=== PATIENT | male | born 1955 | race Caucasian/White ===

== ENCOUNTER 2016-04-24 18:23 | Inpatient (IN) | payer OTHER ==
[~2016-04-24] VITALS: Ht 193 cm; Wt 117.4 kg
[~2016-04-24 18:23] MED LIST: CARV25TA2 PO; CREST10T PO; FENO54TA PO; FURO40TA4 PO; GLPZ5T PO; LISI-571 PO; MESA1.2T2 PO; MESA800T PO; NIAC500T7 PO; SPIR25TA3 PO; TAMS0.4C98 PO; WARF5TAB7 PO
[2016-04-24 19:34] VITALS: BP 138/81; PULSE 76; RESP 16; O2SAT 97
[2016-04-24] MEDS ORDERED: FERR325T6 PO (19:44)
[2016-04-24] MEDS ORDERED: ASCO-294 PO (19:44)
[2016-04-24] MEDS ORDERED: FISH1CAP15 PO (19:44)
[2016-04-24] MEDS ORDERED: WARF7.5T5 PO (19:44)
[2016-04-24] MEDS ORDERED: WARF5TAB9 PO (19:44)
[2016-04-24] MEDS ORDERED: ROSU40TA20 PO (19:50)
--- NOTE | 2016-04-24 22:13 | NUR ---
admit: med rec completed by admit RN. pt is A&OX3, sister at bedside with pt. pt reports neuropathy and reports pain 2/10 of left toe. Left foot elevated on pillow, serous drainage. 2nd toe is red/purple swollen. pt reports some soreness of foot and up Lower leg. minimal redness noted. VSS. notified pt has arrived to floor. will continue to monitor.
[2016-04-24] MEDS ORDERED: Ondansetron 2 mg/mL 2 mL Inj IVPUSH PRN (22:20)
[2016-04-24] MEDS ORDERED: Alum-Mag Hydrox-Simeth 30 mL Suspension PO PRN (22:20)
[2016-04-24] MEDS ORDERED: Polyethylene Glycol (PEG) 17 Gm Powder PO PRN (22:20)
[2016-04-24] MEDS ORDERED: Glucose 40% Oral Gel 15 Gm Tube PO PRN (22:20)
[2016-04-24] MEDS ORDERED: Piper-Tazo 3.375 Gm/50 mL D5W Minibag Plus - Q8H over 4 hrs IV ONE ×2 (22:40)
[2016-04-24 22:54] LABS: BASOPHILS % (AUTO) 0.3 % (0-3); EOSINOPHILS % (AUTO) 4.4 % (0-5); MONOCYTES % (AUTO) 18.3 % (4-12); Mean Corpuscular Hemoglobin 29.3 pg (27.0-35.0); Mean Corpuscular Volume 90.5 fL (81-100); NEUTROPHILS % (AUTO) 60.5 % (40-74); Platelet Count 174 bil/L (150-400)
[2016-04-24] MEDS ORDERED: 0.9% Sodium Chloride 250 ML ONE (22:54)
[2016-04-24] MEDS: Lactated Ringer's 1,000 ML IV SCH (23:25)
--- NOTE | 2016-04-24 23:27 | PCM.HPMED ---
Subjective Date of Service Apr 24, 2016 Primary Provider: Admitting Physician: Abdulaziz Carranza Primary Care Physician: Jered Bright MD Attending Physician: Abdulaziz Carranza Admit Status: Direct Admit (from Urgent Care) Chief Complaint: Left second toe infection History of Present Illness: Patient is a 60 year-old diabetic male who presented to urgent care this afternoon. He states that his left second toe has been discolored for years. 1- 2 weeks ago, he noted worsening coloration. Two days ago, he began having shooting pain that lasted all night and was associated with mild chills and subjective fevers. Last night he felt better but this morning it seemed more swollen so he decided to work all day and go to urgent care after work. He has very little pain because of his neuropathy. In urgent care, he was surprised to see the extent of change in his toe since the morning. Much more swollen, more discoloration. Urgent care marge labs and had 3-view x-rays taken then sent him to [facility] for IV antibiotics. Vitals were stable: 97.5; 127/79; 79; 18; 97% on room air; 1/10 pain level. Labs: CRP 19.2; H&H 12.0 & 36.2; BUN & Cr = 46 & 1.89 (note, elevated since 2011 and at baseline ); sed rate 17. . Review of Systems: As per HPI, otherwise negative. Allergies Coded Allergies: clindamycin (Verified Allergy, Severe, RASH, 11/29/14) codeine (Verified Allergy, Severe, HEADACHE, 11/29/14) Home Medications Carvedilol 25mg BID ascorbate calcium 500mg QAM fenofibrate 54mg PO QHS ferrous sulfate 325mg daily fish oil/DHA/EPA 2 capsules PO QAM furosemide 40mg daily glipizide 5mg PO AM; 10mg PO QHS lisinopril 5mg daily mesalamine 2.4 gm PO daily niacin 1,000 mg PO QHS Rosuvastatin 40mg PO HS Spironolactone 12.5 mg PO daily Warfarin 5mg 6 days of the week, 7.5mg on Tuesdays . PMH Paroxysmal atrial fibrillation OA nephrolithiasis moderate mitral regurgitation kidney stones chronic renal insufficiency HTN hyperlipidemia dilated cardiomyopathy DM2 Crohn's disease CHF Family History Mother with diabetes, CAD, of lung cancer Social History Hx Alcohol Use: No (QUIT 1977) Hx Substance Use: No Hx Tobacco Use: No Smoking Status: Never Smoker Living Arrangement: with Family Exam Vital Signs Vital Sign - Last Date Time Temp Pulse Resp B/P Pulse Ox O2 Delivery O2 Flow Rate FiO2 04/24/16 19:34 36.6 76 16 138/81 97 Room Air Exam General: alert, oriented x3, cooperative, no acute distress Eyes: PERRL, scleral anicteric Mouth: mouth normal, mucous membranes moist/pink Neck: supple, no thyromegaly Chest & Lungs: clear to auscultation, no adventitious breath sounds, no crackles , no wheeze Cardiovascular: no murmurs/rubs/gallops, regular rate/rhythm at the time of the exam Pulses: Radial (present and equal), Dorsalis Pedi (present and equal but diminished) Abdomen: soft, non-tender, non-distended, normoactive bowel tones Musculoskeletal: Left second toe is edematous, erythematous, with abrasion on dorsum of toe, mild redness extending to mid-calf on left, he is able to move all toes, only mild tenderness to palpation at base of 2nd toe on dorsum of foot. Erythema extends through ankle. No excessive heat. Neurological: Grossly neurologically intact, normal speech, diminished sensation in toes . Lab and Diagnostics X-Rays, CTs and MRIs 04/24/16: PROCEDURE: X-RAY LEFT FOOT COMPLETE, MINIMUM THREE VIEWS ([id number]) INDICATIONS: DIABETIC FOOT INFECTION TECHNIQUE: 3 views of the foot were acquired. COMPARISON: None. FINDINGS: Bones: No fractures or dislocations. No suspicious bony lesions. Osteoarthritic degenerative changes are noted. Pes planus deformity is noted. No bony erosive changes or periosteal reaction identified. Soft tissues: No tibiotalar joint effusion. Achilles tendon appears normal. No soft tissue gas identified. Soft tissue swelling noted in the first and second digits suspicious for cellulitis. IMPRESSION: No lizette evidence of osteomyelitis. Plain film radiographs can be insensitive to osteomyelitis during the initial 15 days of the disease process. If there is clinical concern for osteomyelitis, then three-phase nuclear medicine bone scan is warranted. Dictated by: Selma Zhou MD, PhD on 04/24/2016 at 18:48 Assessment & Plan Patient is a 60 year-old diabetic male who presented to urgent care this afternoon with edematous and erythematous left 2nd toe. Cellulitis of left second toe in a diabetic with neuropathy, present on admission, acute - Per 3 view x-ray of today: No lizette evidence of osteomyelitis - Patient does not have signs of sepsis - Podiatry, Dr. Duncan, consult ordered. I DID NOT CALL. DAY TEAM NEEDS TO CALL. - Wound care ordered - Consulted with pharmacy regarding antibiotics and patient's reduced kidney capacity. Per pharmacy: Zosyn and linezolid. Stop linezolid if MRSA comes back negative. - Wound culture - Blood cultures x2 - MRSA swab - lactic acid normal, CRP high at 16.6 - IV fluids. Careful with CHF. Chronic kidney disease likely diabetic nephropathy, present on admission - UA pending - Cr 1.66 which is better than baseline per [facility] records from 2011. Estimated GFR 45 - careful with nephrotoxic drugs. - Patient is on antibiotics -- continued monitoring of kidney function Proximal atrial fibrillation, present on admission, chronic - INR 3.06 - warfarin per pharmacy Diabetes mellitus type 2, present on admission, chronic - Last A1c on 01/17/16 was 6.3. There have been periods of time since 2011 that his A1c was over 10. A1c ordered - Held glipizide in the acute setting - Medium dose correctional scale ordered - Diabetic/heart healthy diet Other chronic, present on admission diagnoses: Heart failure with preserved ejection fraction / cardiomyopathy. Hold furosemide , spironolactone in the acute setting of infection with IV fluids. Restart when appropriate. Continue carvedilol. HTN. Hold lisinopril in the acute setting considering chronic kidney failure and current antibiotics. Restart when appropriate. Continue carvedilol. Dyslipidemia. Rosuvastatin, fenofibrate continued. Crohn's disease. Continue mesalamine. - Acetaminophen as needed for mild pain/fever/headache - Bowel regimen as needed - Antiemetic as needed Patient admitted under inpatient status with expected length of stay > 2 midnights for severity of present symptoms, complexities of treatment plan and risk for adverse events CODE STATUS: full, verified with patient . Pain Evaluation: Adequate Pain Control GI Prophylaxis: Proton Pump Inhibitor VTE Prophylaxis: Sub-Q Heparin (Unfractionated), Theraputic Anticoag with Warfarin Resuscitation Status: CPR: Attempt Resuscitation Attending Statement Pt seen and examined independently, Plan and treatment discussed with resident. Agree with the above plan and assesment. copies to: Jered Bright MD, Janice M DO Apr 24, 2016 23:26 Ramiro Robins MD Apr 25, 2016 06:47 Patient admitted under inpatient status with expected length of stay > 2 midnights for severity of present symptoms, complexities of treatment plan and risk for adverse events CODE STATUS: full, verified with patient Pain Evaluation: Adequate Pain Control GI Prophylaxis: Proton Pump Inhibitor VTE Prophylaxis: Sub-Q Heparin (Unfractionated), Theraputic Anticoag with Warfarin Resuscitation Status: CPR: Attempt Resuscitation copies to: Jered Bright MD, Janice M DO Apr 24, 2016 23:26
[2016-04-24 23:43] LABS: INR 3.06 ratio
[2016-04-25] MEDS: Linezolid Inj 600 MG in IV Premix 1 EACH IV SCH ×3 (00:20→23:08)
[2016-04-25] MEDS ORDERED: Heparin 5,000 Unit/mL Inj SUBQ SCH (00:30)
[2016-04-25 01:00] VITALS: BP 133/77; PULSE 77; RESP 16; O2SAT 97
[2016-04-25 03:29] LABS: APPEARANCE,URINE CLEAR (CLEAR,HAZY); COLOR,URINE STRAW (YELLOW)
[2016-04-25 03:30] LABS: OCCULT BLOOD,URINE NEGATIVE (NEGATIVE); UROBILINOGEN,URINE NORMAL (NORMAL)
[2016-04-25 05:56] VITALS: BP 135/80; PULSE 76; RESP 16; O2SAT 96
[2016-04-25 06:14] LABS: BASOPHILS % (AUTO) 0.4 % (0-3); EOSINOPHILS % (AUTO) 6.1 % (0-5); MONOCYTES % (AUTO) 17.9 % (4-12); Mean Corpuscular Hemoglobin 29.5 pg (27.0-35.0); Mean Corpuscular Volume 89.7 fL (81-100); NEUTROPHILS % (AUTO) 54.8 % (40-74); Platelet Count 153 bil/L (150-400)
[2016-04-25 06:37] LABS: INR 2.9 ratio
[2016-04-25] MEDS: Insulin LISPRO 300 Unit/3 mL Inj SUBQ SCH ×4 (07:25→21:13)
[2016-04-25] MEDS: Omega-3 Fatty Acids 1,000 mg Capsule PO SCH (07:31)
[2016-04-25] MEDS: Ascorbic Acid 500 mg Tablet PO SCH (07:31)
[2016-04-25] MEDS: Lactated Ringer's 1,000 ML IV SCH ×2 (07:32→18:42)
[2016-04-25] MEDS ORDERED: Influenza (Adult) Vaccine 0.5 mL Syringe IM ONE (08:30)
[2016-04-25] MEDS: Piper-Tazo 3.375 Gm/50 mL D5W Minibag Plus - Q8H over 4 hrs IV SCH ×2 (11:06)
--- NOTE | 2016-04-25 14:19 | PCM.PNMED ---
Subjective Date of Service Apr 25, 2016 Subjective Overnight: No acute events Today: States he is doing well, denies any fever, chills, nausea, vomiting. Admits to occasional sharp pain Exam Vital Signs Vital Sign - Last Date Time Temp Pulse Resp B/P Pulse Ox O2 Delivery O2 Flow Rate FiO2 04/25/16 05:56 36.5 76 16 135/80 96 Room Air Exam General: AAOx3; pleasant and cooperative; no acute distress HENT: Atraumatic; sclera anicteric; mucus membranes moist Neck: Trachea midline; full ROM without pain elicited Cardiac: Regular rate, regular rhythm; no murmurs appreciated Respiratory: Clear to auscultation bilaterally; adequate air flow all matias; no wheeze Abdomen: Soft, nontender, nondistended Extremities: No edema BLLE; Right foot without any ulcerations or signs of injuries; left second digit enlarged, edematous, erythematous, and discolored with ulceration on distal aspect of toe without active bleeding or discharge Pulses: BLLE dorsal pedis faint Neuro: CNII-XII grossly intact; speech normal Psych: Appropriate mood, affect, and responses to questioning Lab and Diagnostics Result Diagram: 04/25/1654404/25/16544 X-Rays, CTs and MRIs PROCEDURE: X-RAY LEFT FOOT COMPLETE, MINIMUM THREE VIEWS ([id number]) IMPRESSION: No lizette evidence of osteomyelitis. Plain film radiographs can be insensitive to osteomyelitis during the initial 15 days of the disease process. If there is clinical concern for osteomyelitis, then three-phase nuclear medicine bone scan is warranted. Dictated by: Selma Zhou MD, PhD on 04/24/2016 at 18:48 Assessment & Plan Mr. Ibrahim is a pleasant 60 year old gentleman with history of non-insulin using diabetes mellitus with peripheral neuropathy, and chronic kidney disease III, that presented to [facility] from with a painful, swollen left second toe, without associated fevers, chills, nausea, or vomiting. He was admitted for evaluation and treatment of suspected cellulitis of left second toe. - Hospital day two Cellulitis of left second toe in a diabetic with neuropathy, acute, present on admission. Under therapy - XR left foot 04/24: No lizette evidence of osteomyelitis - Podiatry consulted; appreciate time and recommendations - Wound care ordered - Antibiotics: Zosyn, linezolid; start date 04/24 - Stop linezolid if MRSA negative - Wound culture pending - Blood cultures x2 pending - MRSA swab pending Chronic kidney disease secondary to diabetic nephropathy. Presumed stable - On admit: Cr 1.66; baseline per [employer] approx 1.4-1.5 - UA 04/25: Negative for indicators of infection - Monitor with labs - Avoid nephrotoxic agents Paroxysmal atrial fibrillation, chronic. Presumed stable - On admit: INR 3.06 - Warfarin per pharmacy Non-insulin using diabetes mellitus, chronic. Presumed stable - Last A1c on 01/17/16 was 6.3 - Held glipizide in the acute setting - Medium dose correctional scale ordered - Diabetic/heart healthy diet Other chronic, presumed stable, diagnoses: Heart failure with preserved ejection fraction / cardiomyopathy - Hold furosemide, spironolactone in the acute setting of infection with IV fluids. Restart when appropriate. - Continue carvedilol. HTN. - Hold lisinopril in the acute setting considering chronic kidney failure and current antibiotics. - Restart when appropriate. - Continue carvedilol. Dyslipidemia. - Rosuvastatin, fenofibrate continued. Crohn's disease. - Continue mesalamine. - PRN: Fever/antiemetic/pain/bowel - DVT: Warfarin - GI: None - DIET: Heart healthy/CC - CODE: FULL CODE Dispo: Likely to remain additional 1-2 days pending medical stability. Awaiting recs from podiatry, and culture results. No definitive anticipated needs at this time, but awaiting antibiotic sensitivities to return. Pain Evaluation: Adequate Pain Control GI Prophylaxis: Proton Pump Inhibitor VTE Prophylaxis: Sub-Q Heparin (Unfractionated), Theraputic Anticoag with Warfarin Resuscitation Status: CPR: Attempt Resuscitation Attending Statement The patient was seen and examined together with Dr. Dill on 04/25/2016 and I agree with the history, exam and plan as outlined in the note above. Marci Dill DO Apr 25, 2016 12:55 Kodi Lombardi MD Apr 26, 2016 09:19
--- NOTE | 2016-04-25 14:56 | PCM.CHPPOD ---
Subjective Date of service Apr 25, 2016 History of Present Illness 60 year old male with history of neuropathy and DM is evaluated at bedside in [facility]. no complaints of pain. no fevers or chills. patient states that he noticed his toe had become inflamed and was discharging pus over the past 3 days. 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 Allergy Allergies: Coded Allergies: clindamycin (Verified Allergy, Severe, RASH, 11/29/14) codeine (Verified Allergy, Severe, HEADACHE, 11/29/14) Medications Blood Thinners: Coumadin Ascorbate Calcium (Vitamin C) 500 Mg Tablet 500 MG PO QAM Carvedilol (Carvedilol) 25 Mg Tablet 25 MG PO BID Fenofibrate (Fenofibrate) 54 Mg Tablet 54 MG PO HS Ferrous Sulfate (Ferrous Sulfate) 325 Mg Tablet.dr 325 MG PO DAILY Fish Oil/Dha/Epa (Fish Oil 1,200 mg Fish Oil) 1 Each Capsule 2 CAPSULE PO QAM Furosemide (Furosemide) 40 Mg Tablet 40 MG PO DAILY Glipizide (Glipizide) 5 Mg Tablet 5 MG PO AM Glipizide (Glipizide) 5 Mg Tablet 10 MG PO HS Lisinopril (Lisinopril) 5 Mg Tablet 5 MG PO DAILY Mesalamine (Lialda) 1.2 Gm Tablet.dr 2.4 GM PO DAILY Niacin (Niacin) 500 Mg Tablet 1,000 MG PO HS Rosuvastatin Calcium (Rosuvastatin Calcium) 40 Mg Tablet 40 MG PO HS Spironolactone (Spironolactone) 25 Mg Tablet 12.5 MG PO DAILY Warfarin Sodium (Jantoven) 5 Mg Tablet 5 MG PO DAILY take 5 mg daily except tuesdays. Warfarin Sodium (Jantoven) 7.5 Mg Tablet 7.5 MG PO tuesdays Past Medical History Surgeries: Yes (MULT CYSTO/STENT/STONE EXTRACTIONS,HEART CATH) Medical History: Surgical History: Social History Hx Alcohol Use: No (QUIT 1977) Hx Substance Use: No Hx Tobacco Use: No Smoking Status: Never Smoker Podiatry Consult Exam Vital Signs Vital Sign - Last Date Time Temp Pulse Resp B/P Pulse Ox O2 Delivery O2 Flow Rate FiO2 04/25/16 05:56 36.5 76 16 135/80 96 Room Air Result Diagram: 04/25/1645 04/25/1645 Lab Test 04/24/16 22:31 04/25/16 02:15 04/25/16 05:45 Erythrocyte Sedimentation Rate 67mm/hr (0-30) Lactic Acid Level 0.5mmol/L (0.4-2.0) C-Reactive Protein 16.6mg/dL (0.0-0.5) Hold Burger Top Tube Received (Received) Urine Color Straw (YELLOW) Urine Appearance Clear (CLEAR,HAZY) Urine pH 6.0 (5.0-8.0) Urine Specific Mchenry 1.015 (1.003-1.035) Urine Protein Negativemg/dL (NEG,TRACE) Urine Glucose (UA) Negativemg/dL (NEGATIVE) Urine Ketones Negativemg/dL (NEGATIVE) Urine Occult Blood Negative (NEGATIVE) Urine Nitrite Negative (NEGATIVE) Urine Bilirubin Negative (NEGATIVE) Urine Urobilinogen Normalmg/dL (NORMAL) Urine Leukocyte Esterase Negative (NEGATIVE) Urine RBC 0-2/hpf (0-2) Urine WBC 0-5/hpf (0-5) Urine Epithelial Cells Occasional/hpf (NONE-MOD) Urine Crystals None seen (NONE SEEN) Urine Bacteria Few/hpf (NONE-FEW) Urine Hyaline Casts None/lpf (NONE) Urine Granular Casts None seen (NONE SEEN) Urine Waxy Casts None seen (NONE SEEN) Urine Red Blood Cell Casts None seen (NONE SEEN) Urine White Blood Cell Casts None seen (NONE SEEN) Urine Mucus None seen (None Seen) Urine Trichomonas None seen (NONE SEEN) Urine Yeast None (NONE SEEN) Urinalysis Comment None Urine Culture Reflexed Not indicated White Blood Count 5.3th/mm3 (3.8-10.1) Red Blood Count 3.69mil/mm3 (4.40-5.80) Hemoglobin 10.9g/dL (13.8-17.2) Hematocrit 33.1% (41.0-50.0) Mean Corpuscular Volume 89.7fL (81-100) Mean Corpuscular Hemoglobin 29.5pg (27.0-35.0) Mean Corpuscular Hemoglobin Concent 32.9% (32.0-37.0) Red Cell Distribution Width 14.5% (12.3-15.4) Platelet Count 153bil/L (150-400) Neutrophils (%) (Auto) 54.8% (40-74) Lymphocytes (%) (Auto) 20.6% (14-46) Monocytes (%) (Auto) 17.9% (4-12) Eosinophils (%) (Auto) 6.1% (0-5) Basophils (%) (Auto) 0.4% (0-3) Prothrombin Time 31.7sec (8.1-12.5) Prothromb Time International Ratio 2.90ratio Sodium Level 140mEq/L (134-144) Potassium Level 4.7mEq/L (3.5-5.2) Chloride Level 108mEq/L (97-108) Carbon Dioxide Level 17mmol/L (18-29) Blood Urea Nitrogen 37mg/dL (8-27) Creatinine 1.46mg/dL (0.76-1.27) Estimat Glomerular Filtration Rate 52mL/min (>59) Glucose Level 101mg/dL (60-99) Calcium Level 8.9mg/dL (8.5-10.1) Total Bilirubin 0.3mg/dL (0.0-1.2) Aspartate Amino Transf (AST/SGOT) 20U/L (0-50) Alanine Aminotransferase (ALT/SGPT) 16U/L (0-44) Alkaline Phosphatase 44U/L (25-160) Total Protein 6.4g/dL (6.4-8.4) Albumin 3.5g/dL (3.4-5.0) Triglycerides Level 149mg/dL (0-149) Cholesterol Level 117mg/dL (100-199) LDL Cholesterol, Calculated 60.200mg/dL (0-99) VLDL Cholesterol 29.800mg/dL HDL Cholesterol 27mg/dL (>39) Cholesterol/HDL Ratio 4.33 (0.0-4.4) Exam General: Alert, Oriented X3, Cooperative Lower Extremities: Left: Edema localized Bilateral: Extremity warm Lower Extremity Pulses: Palpable: Left Dorsalis Pedis Left Posterior Tibal Right Dorsalis Pedis Right Posterior Tibal Podiatry WOUND : Wound Location/Description left 2nd digit abscess of the 2nd DIPJ with approximately 4ml of purulent discharge, abscess wound is full thickness to bone, 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 severe edema of the 2nd digit. erythema encompasses the digit but pond not extend beyond the MTPJ. no mal odor. Assessment & Plan Assessment abscess/Cellulitis of the left 2nd digit highly suspicious of osteomyelitis. Problems: Plan Detailed bedside evaluation preformed today. The left second toe was prepped with betadine and the lateral aspect of the distal interphalangeal joint was incised, approx 4 ml of purulent drainage was noted. wound cultures taken. wound flushed and dressed with betadine soaked gauze and kerlix. Dressing to be changed daily by podiatry service. Continue IV antibiotics. follow wound cultures. NPO after midnight tonight. Patient will be evaluated by Dr. Garcia in the AM and could potentially require 2nd toe amputation if no improvement is noted. weightbear as tolerated to the left heel podiatry will follow daily. VTE Prophylaxis: Sub-Q Heparin (Unfractionated), Theraputic Anticoag with Warfarin Haim Duncan DPM Apr 25, 2016 14:56
--- NOTE | 2016-04-25 15:20 | NUR ---
spiritual care; pt request conversational visit with pt and sister lexi. Pt described toe infection in light terms, sister more concerned. Pt and sister participated in prayer. pt said he is connected at [facility], no further needs identified.
--- NOTE | 2016-04-25 16:38 | NUR ---
Wound Care Wound evaluation order received. Patient seen at bedside with Dr Duncan of podiatry. Podiatry plan is for surgical debridement, wound will sign off for now.
[2016-04-25 18:12] VITALS: BP 152/87; PULSE 78; RESP 18; O2SAT 95
[2016-04-25] MEDS: Heparin 5,000 Unit/mL Inj SUBQ SCH (18:42)
[2016-04-25] MEDS: Niacin SR 500 mg ER12 Tablet PO SCH (19:45)
[2016-04-25 20:56] VITALS: BP 140/90; PULSE 70; RESP 18; O2SAT 96
[2016-04-25 22:55] VITALS: BP 142/86; PULSE 72; RESP 18; O2SAT 96
[2016-04-26] MEDS: Piper-Tazo 3.375 Gm/50 mL D5W Minibag Plus - Q8H over 4 hrs IV SCH ×6 (00:27→22:59)
[2016-04-26 01:02] VITALS: BP 125/77; PULSE 69; RESP 18; O2SAT 97
[2016-04-26] MEDS: Heparin 5,000 Unit/mL Inj SUBQ SCH ×3 (01:08→16:48)
--- NOTE | 2016-04-26 03:54 | NUR ---
Left Foot: Left foot dressing in place throughout shift, therefore no direct observation of wound site. Dressing has small amount of what appears to be a Betadine-like solution dried on dressing. No active drainage observed during shift. Dressing otherwise clean/dry/intact. Pt. has denied pain to site. Will continue to monitor.
[2016-04-26 05:38] VITALS: BP 129/76; PULSE 74; RESP 18; O2SAT 97
[2016-04-26 06:57] LABS: INR 1.74 ratio
[2016-04-26 07:06] LABS: Magnesium 1.9 mg/dL (1.6-2.6)
[2016-04-26] MEDS: Insulin LISPRO 300 Unit/3 mL Inj SUBQ SCH ×4 (08:00→21:08)
[2016-04-26] MEDS: Lactated Ringer's 1,000 ML IV SCH ×2 (08:28→14:16)
[2016-04-26] MEDS: HYDROcodone-APAP 5-325 mg Tablet PO PRN (09:57)
[2016-04-26] MEDS: Linezolid Inj 600 MG in IV Premix 1 EACH IV SCH ×2 (10:06→22:00)
[2016-04-26] MEDS: Omega-3 Fatty Acids 1,000 mg Capsule PO SCH (10:09)
[2016-04-26] MEDS: Ascorbic Acid 500 mg Tablet PO SCH (10:10)
--- NOTE | 2016-04-26 11:22 | PCM.PNPOD ---
Subjective Date of Service: Apr 26, 2016 Visit Information: Reason for Visit Diabetic Foot W/Cellulitis Surgery/Surgery Date Post-Op Day # Date of Admission: Apr 24, 2016 at 19:18 Hospital Day # Subjective: 61-year-old male is seen for follow-up of diabetic abscess and cellulitis second toe left foot which underwent bedside incision and drainage by yesterday. Patient denies fever chills or malaise, minimal to no pain. felt that amputation might be indicated therefore patient has been nothing by mouth since midnight. Objective Vital Sign - Last Date Time Temp Pulse Resp B/P Pulse Ox O2 Delivery O2 Flow Rate FiO2 04/26/16 05:38 36.6 74 18 129/76 97 Room Air Intake and Output 04/25/16 04/25/16 04/26/16 Cumulative From/Thru 15:00 23:00 07:00 04/24/16 19:35 - 04/26/16 06:28 Intake Total 1524 ml 2201 ml 1650 ml 5375 ml Output Total 375 ml 250 ml 750 ml 1375 ml Balance 1149 ml 1951 ml 900 ml 4000 ml Intake Oral 400 ml 1167 ml 700 ml 2267 ml IV Total 1124 ml 1004 ml 950 ml 3078 ml Tube Irrigant 30 ml 30 ml Output Urine Total 375 ml 250 ml 750 ml 1375 ml # Voids 5 5 Result Diagram: 04/25/16 0545 04/26/16 0600 Lab Test 04/24/16 22:31 04/25/16 02:15 04/25/16 05:45 04/26/16 06:00 Erythrocyte Sedimentation Rate 67mm/hr (0-30) Lactic Acid Level 0.5mmol/L (0.4-2.0) C-Reactive Protein 16.6mg/dL (0.0-0.5) Hold Burger Top Tube Received (Received) Urine Color Straw (YELLOW) Urine Appearance Clear (CLEAR,HAZY) Urine pH 6.0 (5.0-8.0) Urine Specific [place] 1.015 (1.003-1.035) Urine Protein Negativemg/dL (NEG,TRACE) Urine Glucose (UA) Negativemg/dL (NEGATIVE) Urine Ketones Negativemg/dL (NEGATIVE) Urine Occult Blood Negative (NEGATIVE) Urine Nitrite Negative (NEGATIVE) Urine Bilirubin Negative (NEGATIVE) Urine Urobilinogen Normalmg/dL (NORMAL) Urine Leukocyte Esterase Negative (NEGATIVE) Urine RBC 0-2/hpf (0-2) Urine WBC 0-5/hpf (0-5) Urine Epithelial Cells Occasional/hpf (NONE-MOD) Urine Crystals None seen (NONE SEEN) Urine Bacteria Few/hpf (NONE-FEW) Urine Hyaline Casts None/lpf (NONE) Urine Granular Casts None seen (NONE SEEN) Urine Waxy Casts None seen (NONE SEEN) Urine Red Blood Cell Casts None seen (NONE SEEN) Urine White Blood Cell Casts None seen (NONE SEEN) Urine Mucus None seen (None Seen) Urine Trichomonas None seen (NONE SEEN) Urine Yeast None (NONE SEEN) Urinalysis Comment None Urine Culture Reflexed Not indicated White Blood Count 5.3th/mm3 (3.8-10.1) Red Blood Count 3.69mil/mm3 (4.40-5.80) Hemoglobin 10.9g/dL (13.8-17.2) Hematocrit 33.1% (41.0-50.0) Mean Corpuscular Volume 89.7fL (81-100) Mean Corpuscular Hemoglobin 29.5pg (27.0-35.0) Mean Corpuscular Hemoglobin Concent 32.9% (32.0-37.0) Red Cell Distribution Width 14.5% (12.3-15.4) Platelet Count 153bil/L (150-400) Neutrophils (%) (Auto) 54.8% (40-74) Lymphocytes (%) (Auto) 20.6% (14-46) Monocytes (%) (Auto) 17.9% (4-12) Eosinophils (%) (Auto) 6.1% (0-5) Basophils (%) (Auto) 0.4% (0-3) Hemoglobin A1c 6.5% (4.8-5.6) Triglycerides Level 149mg/dL (0-149) Cholesterol Level 117mg/dL (100-199) LDL Cholesterol, Calculated 60.200mg/dL (0-99) VLDL Cholesterol 29.800mg/dL HDL Cholesterol 27mg/dL (>39) Cholesterol/HDL Ratio 4.33 (0.0-4.4) Prothrombin Time 18.8sec (8.1-12.5) Prothromb Time International Ratio 1.74ratio Sodium Level 140mEq/L (134-144) Potassium Level 4.8mEq/L (3.5-5.2) Chloride Level 107mEq/L (97-108) Carbon Dioxide Level 20mmol/L (18-29) Blood Urea Nitrogen 25mg/dL (8-27) Creatinine 1.48mg/dL (0.76-1.27) Estimat Glomerular Filtration Rate 51mL/min (>59) Glucose Level 125mg/dL (60-99) Calcium Level 9.0mg/dL (8.5-10.1) Phosphorus Level 3.0mg/dL (2.5-4.9) Magnesium Level 1.9mg/dL (1.6-2.6) Total Bilirubin 0.4mg/dL (0.0-1.2) Aspartate Amino Transf (AST/SGOT) 18U/L (0-50) Alanine Aminotransferase (ALT/SGPT) 15U/L (0-44) Alkaline Phosphatase 45U/L (25-160) Total Protein 6.4g/dL (6.4-8.4) Albumin 3.7g/dL (3.4-5.0) Procalcitonin 0.06ng/mL (See Comment) Exam General: Alert, Oriented X3, Cooperative Lower Extremities: Left: Edema localized Bilateral: Extremity warm Lower Extremity Pulses: Palpable: Left Dorsalis Pedis Left Posterior Tibal Right Dorsalis Pedis Right Posterior Tibal Additional Information: Reexam shows a pleasant gentleman resting comfortably in bed, moderate dry sanguinous drainage on the bandage to the left foot. Lower extremity exam shows readily palpable DP and PT pulses at +2 over 4, the foot is warm with a brisk capillary refill. There is nearly absent plantar sensorium. Second digit is grossly edematous erythematous and somewhat dusky to the level of the metatarsal phalangeal joint, there is only mild erythema at the second MPJ level with no clinical suggestion of proximal extension. Patient states the degree of redness and swelling is improved since yesterday. There are 3 full- thickness ulcers to appear to probe to bone and joint at the PIPJ level. Probing of these sites did reveal full-thickness extension but no expressible purulence. There did appear to be some instability at the proximal interphalangeal joint level. Remainder of the pedal skin is intact webspaces are without fissures or maceration. Skin of the right foot is intact with no ulcerative or pre-ulcerative lesions noted. Assessment & Plan Impression Diabetic neuropathic ulceration, abscess and infection second digit left foot with viability of the toe questionable but which is without significant proximal extension or systemic involvement. Problems: Plan At this visit the wounds are explored bluntly an attempt made to express any purulence was little to no exudate noted. The sites were copiously irrigated with saline, iodoform gauze packing applied followed by a noncompressive gauze bandage. Continue present antibiotic therapy. Patient will likely require second digit amputation in this keep could which could be performed on Thursday I either Dr. Duncan or myself. Diabetic foot care instructions were reviewed with this patient, he may ambulate on the heel in a postoperative shoe and will be reevaluated in the a.m. VTE Prophylaxis: Sub-Q Heparin (Unfractionated), Theraputic Anticoag with Warfarin Dean Garcia DPM Apr 26, 2016 11:22
[2016-04-26 17:38] VITALS: BP 157/84; PULSE 63; RESP 16; O2SAT 96
--- NOTE | 2016-04-26 17:50 | NUR ---
Activity/LLE Pt able to amb to BR ind, denies any pain/discomfort with activity. Post-op boot placed on LLE to protect drsg. Electronic Sensing Equipment Assembler in this AM and changed drsg to LLE, there has been no drainage noted on drsg thus far. Pt did req PRN analgesic following drsg change but has denied any pain since. Enc to keep LLE elevated. Bed in lowest, locked position and call light in reach.
--- NOTE | 2016-04-26 19:39 | PCM.PNMED ---
Subjective Date of Service Apr 26, 2016 Subjective Patient reports that he is fine. He reports minimal pain to his foot. Pt denies any fevers, chills, nausea, vomiting, or diarrhea. Pt has no concerns or complaints at this time. Exam Vital Signs Vital Sign - Last Date Time Temp Pulse Resp B/P Pulse Ox O2 Delivery O2 Flow Rate FiO2 04/26/16 05:38 36.6 74 18 129/76 97 Room Air Intake and Output 04/25/16 04/25/16 04/26/16 Cumulative From/Thru 15:00 23:00 07:00 04/24/16 19:35 - 04/26/16 06:28 Intake Total 1524 ml 2201 ml 1650 ml 5375 ml Output Total 375 ml 250 ml 750 ml 1375 ml Balance 1149 ml 1951 ml 900 ml 4000 ml Intake Oral 400 ml 1167 ml 700 ml 2267 ml IV Total 1124 ml 1004 ml 950 ml 3078 ml Tube Irrigant 30 ml 30 ml Output Urine Total 375 ml 250 ml 750 ml 1375 ml # Voids 5 5 Exam General: No acute distress, well-developed, well-nourished, appropriately interactive HEENT: Normocephalic, atraumatic. . Anicteric sclerae, moist conjunctivae. Oropharynx with moist mucosa. Neck: Supple with full range of motion. Cardiovascular: Regular rate and rhythm with no murmurs, rubs, or gallops appreciated Pulmonary: Clear to auscultation bilaterally with no crackles, wheezes, or rhonchi. Normal respiratory effort with no use of accessory muscles. Abdomen: Bowel tones present. Soft, nontender, nondistended. Extremities: Bandage on left foot not removed for physical examination, per Dr Garcia second digit on left foot with edema/erythema/purulent discharge/cool to touch. No clubbing, cyanosis, edema appreciated. Skin: Normal temperature, turgor, and texture Psychiatric: Normal mood and affect. Alert and oriented to person, place, and time. IVs and Medications Medications Reviewed: Medications were reviewed in detail Lab and Diagnostics Result Diagram: 04/25/16 0545 04/26/16 0600 Microbiology Microbiology GAYLA GS (GRAM STAIN) Final 04/25/16-1838 GRAM STAIN RESULT FEW POLYS FEW GRAM POS COCCI GAYLA CULT AEROBIC Preliminary 01/07/17-1003 PRELIMINARY ID STAPH, PROBABLE STAPH AUREUS SUSCEPTIBILITIES TO FOLLOW COLONY COUNT/QUANTITY MODERATE GROWTH X-Rays, CTs and MRIs PROCEDURE: X-RAY LEFT FOOT COMPLETE, MINIMUM THREE VIEWS ([id number]) IMPRESSION: No lizette evidence of osteomyelitis. Plain film radiographs can be insensitive to osteomyelitis during the initial 15 days of the disease process. If there is clinical concern for osteomyelitis, then three-phase nuclear medicine bone scan is warranted. Dictated by: Selma Zhou MD, PhD on 04/24/2016 at 18:48 Assessment & Plan Mr. 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 He was admitted for evaluation and treatment of suspected cellulitis of left second toe. - Hospital day #3 Acute cellulitis of left second toe in a diabetic with neuropathy, present on admission, ongoing - XR left foot 04/24: No lizette evidence of osteomyelitis - Podiatry consulted; appreciate time and recommendations -Per Podiatry: Pt to continue with medical management, with plan for possible toe amputation on 04/28/16 - Wound care - Antibiotics: Zosyn, linezolid; start date 04/24 - Wound culture--growing staph aureus, susceptibilities pending - Blood cultures x2 with no growth to date - MRSA swab negative Acute episode of loose stools, etiology unknown, ongoing -Pt reports loose stools. -One dose of imodium given -If it persists, recommend c.diff testing Chronic kidney disease secondary to diabetic nephropathy. Presumed stable - On admit: Cr 1.66; baseline per [employer] approx 1.4-1.5 - UA 04/25: Negative for indicators of infection - Monitor with labs - Avoid nephrotoxic agents Paroxysmal atrial fibrillation, chronic. Presumed stable - On admit: INR 3.06 - Warfarin per pharmacy Non-insulin using diabetes mellitus, chronic. Presumed stable - Last A1c on 01/17/16 was 6.3 - Held glipizide in the acute setting - Medium dose correctional scale ordered - Diabetic/heart healthy diet Other chronic, presumed stable, diagnoses: Heart failure with preserved ejection fraction / cardiomyopathy - Hold furosemide, spironolactone in the acute setting of infection with IV fluids. Restart when appropriate. - Continue carvedilol. HTN. - Hold lisinopril in the acute setting considering chronic kidney failure and current antibiotics. - Restart when appropriate. - Continue carvedilol. Dyslipidemia. - Rosuvastatin, fenofibrate continued. Crohn's disease. - Continue mesalamine. - PRN: Fever/antiemetic/pain/bowel - DVT: Warfarin - GI: None - DIET: Heart healthy/CC - CODE: FULL CODE Dispo: Likely to remain additional 1-2 days pending medical stability. Awaiting recs from podiatry, and culture results. No definitive anticipated needs at this time, but awaiting antibiotic sensitivities to return. GI Prophylaxis: Proton Pump Inhibitor VTE Prophylaxis: Sub-Q Heparin (Unfractionated), Theraputic Anticoag with Warfarin Resuscitation Status: CPR: Attempt Resuscitation Attending Statement The patient was seen and examined together with Dr. Greco on 04/26/2016 and I agree with the history, exam and plan as outlined in the note above. Jodi Greco DO Apr 26, 2016 17:20 Kodi Lombardi MD Apr 27, 2016 11:15
[2016-04-26 20:31] VITALS: BP 151/88; PULSE 68; RESP 16; O2SAT 97
[2016-04-26] MEDS: Niacin SR 500 mg ER12 Tablet PO SCH (21:05)
[2016-04-26] MEDS ORDERED: 0.9% Sodium Chloride 250 ML ONE (21:41)
--- NOTE | 2016-04-26 21:50 | NUR ---
Pain at left rib margin Ache 2/10 at left rib margin 1.5 h after dinner,no radiation or SOB, or sweat,not increase on exertion or deep breathing, similar symptoms occurred before at home, unknown etiology,Maalox given,warm pack on, night resident [place] made aware,no order given,states continue monitoring, if worse, will call MD. Symptoms improved to 1/10 about 1hour after intervention above. Addendum: 04/27/16 at 0634 by DIONNE HAMPTON RN rib pain resolved.
[2016-04-27] MEDS: Heparin 5,000 Unit/mL Inj SUBQ SCH ×4 (00:10→23:36)
[2016-04-27 00:19] VITALS: BP 154/92; PULSE 72; RESP 16; O2SAT 96
[2016-04-27 05:15] VITALS: BP 138/82; PULSE 68; RESP 16; O2SAT 97
[2016-04-27] MEDS: Lactated Ringer's 1,000 ML IV SCH ×3 (06:15→22:10)
[2016-04-27 07:23] LABS: BASOPHILS % (AUTO) 0.6 % (0-3); EOSINOPHILS % (AUTO) 5.3 % (0-5); MONOCYTES % (AUTO) 12.1 % (4-12); Mean Corpuscular Hemoglobin 29.5 pg (27.0-35.0); Mean Corpuscular Volume 89.1 fL (81-100); NEUTROPHILS % (AUTO) 58.5 % (40-74); Platelet Count 196 bil/L (150-400)
[2016-04-27] MEDS: Insulin LISPRO 300 Unit/3 mL Inj SUBQ SCH ×4 (07:35→21:52)
[2016-04-27 07:54] LABS: INR 1.25 ratio
[2016-04-27] MEDS: Ascorbic Acid 500 mg Tablet PO SCH (08:51)
[2016-04-27] MEDS: Linezolid Inj 600 MG in IV Premix 1 EACH IV SCH ×2 (08:51→21:52)
[2016-04-27] MEDS: Omega-3 Fatty Acids 1,000 mg Capsule PO SCH (08:51)
--- NOTE | 2016-04-27 10:38 | PCM.PNPOD ---
Subjective Date of Service: Apr 27, 2016 Date of Service: Apr 27, 2016 Visit Information: Reason for Visit Diabetic Foot W/Cellulitis Surgery/Surgery Date Post-Op Day # Date of Admission: Apr 24, 2016 at 19:18 Hospital Day # Subjective: Patient is seen for follow-up of diabetic infection with soft tissue necrosis and abscess second toe left foot and is without complaints stating he denies fever chills or malaise, overall feels well and is accepting of the need for second digit amputation. Objective Vital Sign - Last Date Time Temp Pulse Resp B/P Pulse Ox O2 Delivery O2 Flow Rate FiO2 04/27/16 05:15 36.4 68 16 138/82 97 Room Air Intake and Output 04/26/16 04/26/16 04/27/16 Cumulative From/Thru 15:00 23:00 07:00 04/24/16 19:35 - 04/27/16 06:38 Intake Total 826 ml 725 ml 1412 ml 8338 ml Output Total 925 ml 2300 ml Balance 826 ml 725 ml 487 ml 6038 ml Intake Oral 520 ml 350 ml 3137 ml IV Total 826 ml 205 ml 1062 ml 5171 ml Tube Irrigant 30 ml Output Urine Total 925 ml 2300 ml # Voids 5 10 Result Diagram: 04/27/16 0707 04/27/16 0707 Lab Test 04/24/16 22:31 04/25/16 02:15 04/25/16 05:45 04/26/16 06:00 Erythrocyte Sedimentation Rate 67mm/hr (0-30) Lactic Acid Level 0.5mmol/L (0.4-2.0) C-Reactive Protein 16.6mg/dL (0.0-0.5) Hold Burger Top Tube Received (Received) Urine Color Straw (YELLOW) Urine Appearance Clear (CLEAR,HAZY) Urine pH 6.0 (5.0-8.0) Urine Specific [place] 1.015 (1.003-1.035) Urine Protein Negativemg/dL (NEG,TRACE) Urine Glucose (UA) Negativemg/dL (NEGATIVE) Urine Ketones Negativemg/dL (NEGATIVE) Urine Occult Blood Negative (NEGATIVE) Urine Nitrite Negative (NEGATIVE) Urine Bilirubin Negative (NEGATIVE) Urine Urobilinogen Normalmg/dL (NORMAL) Urine Leukocyte Esterase Negative (NEGATIVE) Urine RBC 0-2/hpf (0-2) Urine WBC 0-5/hpf (0-5) Urine Epithelial Cells Occasional/hpf (NONE-MOD) Urine Crystals None seen (NONE SEEN) Urine Bacteria Few/hpf (NONE-FEW) Urine Hyaline Casts None/lpf (NONE) Urine Granular Casts None seen (NONE SEEN) Urine Waxy Casts None seen (NONE SEEN) Urine Red Blood Cell Casts None seen (NONE SEEN) Urine White Blood Cell Casts None seen (NONE SEEN) Urine Mucus None seen (None Seen) Urine Trichomonas None seen (NONE SEEN) Urine Yeast None (NONE SEEN) Urinalysis Comment None Urine Culture Reflexed Not indicated Hemoglobin A1c 6.5% (4.8-5.6) Triglycerides Level 149mg/dL (0-149) Cholesterol Level 117mg/dL (100-199) LDL Cholesterol, Calculated 60.200mg/dL (0-99) VLDL Cholesterol 29.800mg/dL HDL Cholesterol 27mg/dL (>39) Cholesterol/HDL Ratio 4.33 (0.0-4.4) Phosphorus Level 3.0mg/dL (2.5-4.9) Magnesium Level 1.9mg/dL (1.6-2.6) Procalcitonin 0.06ng/mL (See Comment) Test 04/27/16 07:07 White Blood Count 5.5th/mm3 (3.8-10.1) Red Blood Count 4.04mil/mm3 (4.40-5.80) Hemoglobin 11.9g/dL (13.8-17.2) Hematocrit 36.0% (41.0-50.0) Mean Corpuscular Volume 89.1fL (81-100) Mean Corpuscular Hemoglobin 29.5pg (27.0-35.0) Mean Corpuscular Hemoglobin Concent 33.1% (32.0-37.0) Red Cell Distribution Width 13.8% (12.3-15.4) Platelet Count 196bil/L (150-400) Neutrophils (%) (Auto) 58.5% (40-74) Lymphocytes (%) (Auto) 23.1% (14-46) Monocytes (%) (Auto) 12.1% (4-12) Eosinophils (%) (Auto) 5.3% (0-5) Basophils (%) (Auto) 0.6% (0-3) Prothrombin Time 13.4sec (8.1-12.5) Prothromb Time International Ratio 1.25ratio Sodium Level 141mEq/L (134-144) Potassium Level 4.8mEq/L (3.5-5.2) Chloride Level 105mEq/L (97-108) Carbon Dioxide Level 21mmol/L (18-29) Blood Urea Nitrogen 19mg/dL (8-27) Creatinine 1.38mg/dL (0.76-1.27) Estimat Glomerular Filtration Rate 55mL/min (>59) Glucose Level 128mg/dL (60-99) Calcium Level 9.3mg/dL (8.5-10.1) Total Bilirubin 0.3mg/dL (0.0-1.2) Aspartate Amino Transf (AST/SGOT) 19U/L (0-50) Alanine Aminotransferase (ALT/SGPT) 15U/L (0-44) Alkaline Phosphatase 47U/L (25-160) Total Protein 6.9g/dL (6.4-8.4) Albumin 3.8g/dL (3.4-5.0) Exam General: Alert, Oriented X3, Cooperative Lower Extremities: Left: Edema localized Bilateral: Extremity warm Lower Extremity Pulses: Palpable: Left Dorsalis Pedis Left Posterior Tibal Right Dorsalis Pedis Right Posterior Tibal Additional Information: Reexam shows grossly edematous, persistently fluctuant second digit left foot. Multiple necrotic full-thickness ulcerations noted, with scant amount of purulent exudate expressed and there does appear to be instability at the distal interphalangeal joint. The infection appears to be well localized to the mid to distal toe with no significant involvement at the metatarsal phalangeal joint or proximally at this point. Pulses continue to be readily palpable. X-ray is reviewed, no gross lytic changes are noted, questionable nondisplaced fracture of the intermediate phalanx Assessment & Plan Impression Infection, abscess, soft tissue necrosis second digit left foot with probable but as yet radiographically inapparent osteomyelitis. I feel the chances of this toe healing are minimal and that amputation is indicated. I did review the details of the procedure, the minimal functional deficit as a result of second toe amputation, usual postoperative course and healing times. Patient is accepting of the necessity for this procedure and it will be scheduled tomorrow. Problems: Plan Betadine solution dressing is reapplied, I spoke with the nursing supervisor audit clerks who will have the patient scheduled for second digit amputation tomorrow, he will remain nothing by mouth after midnight. No warrantees were made or implied regarding postoperative results. VTE Prophylaxis: Sub-Q Heparin (Unfractionated), Theraputic Anticoag with Warfarin Dean Garcia DPM Apr 27, 2016 10:38
[2016-04-27 10:52] VITALS: BP 137/85; PULSE 88; RESP 18; O2SAT 93
--- NOTE | 2016-04-27 10:55 | PCM.PNMED ---
Subjective Date of Service Apr 27, 2016 Subjective Pt doing well this morning. Pt denies any fever, chills, nausea, vomiting, or foot pain. Exam Vital Signs Vital Sign - Last Date Time Temp Pulse Resp B/P Pulse Ox O2 Delivery O2 Flow Rate FiO2 04/27/16 05:15 36.4 68 16 138/82 97 Room Air Intake and Output 04/26/16 04/26/16 04/27/16 Cumulative From/Thru 15:00 23:00 07:00 04/24/16 19:35 - 04/27/16 06:38 Intake Total 826 ml 725 ml 1412 ml 8338 ml Output Total 925 ml 2300 ml Balance 826 ml 725 ml 487 ml 6038 ml Intake Oral 520 ml 350 ml 3137 ml IV Total 826 ml 205 ml 1062 ml 5171 ml Tube Irrigant 30 ml Output Urine Total 925 ml 2300 ml # Voids 5 10 Exam GENERAL: NAD, Pt laying in bed comfortably HEENT: AT/NC, PERRLA, EOMI, Mucus Membranes are moist CARDIAC: RRR; No M/R/G PULM: CTAB; No wheezes or rhonchi bilaterally EXT: No C/C/E; Pts left foot is dressed at present NEURO: Alert and oriented x3; Following all commands IVs and Medications Medications Reviewed: Medications were reviewed in detail Lab and Diagnostics Result Diagram: 04/27/1670604/27/16706 Microbiology Microbiology GAYLA GS (GRAM STAIN) Final 04/25/16-1838 GRAM STAIN RESULT FEW POLYS FEW GRAM POS COCCI GAYLA CULT AEROBIC Preliminary 04/26/16-1003 PRELIMINARY ID STAPH, PROBABLE STAPH AUREUS SUSCEPTIBILITIES TO FOLLOW COLONY COUNT/QUANTITY MODERATE GROWTH X-Rays, CTs and MRIs PROCEDURE: X-RAY LEFT FOOT COMPLETE, MINIMUM THREE VIEWS ([id number]) IMPRESSION: No lizette evidence of osteomyelitis. Plain film radiographs can be insensitive to osteomyelitis during the initial 15 days of the disease process. If there is clinical concern for osteomyelitis, then three-phase nuclear medicine bone scan is warranted. Dictated by: Selma Zhou MD, PhD on 04/24/2016 at 18:48 Assessment & Plan Mr. Ibrahim is a pleasant 60 year old gentleman with history of non-insulin using diabetes mellitus with peripheral neuropathy, and chronic kidney disease III, that presented to [facility] from [facility] with a painful, swollen left second toe, without associated fevers, chills, nausea, or vomiting. He was admitted for evaluation and treatment of suspected cellulitis of left second toe. - Hospital day #3 1. Osteomyelitis, Left 2nd Toe - Podiatry on board - Pt underwent a bedside I&D of the toe by Podiatry on 04/26/16 - Continue IV Zosyn and IV Linezolid for now - Wound cultures pending - Pt to undergo amputation of the left 2nd toe on 04/28/2016 2. Atrial Fibrillation, Paroxysmal - Pt is in NSR at present - Continue Warfarin - Pharmacy to dose - INR is therapeutic at present - Repeat INR in AM 3. Diabetes Mellitus, Type II - Well controlled - Continue medium dose SSI - Continue checking FSBS q AC and HS - Hold home Glypizide for now 4. Essential Hypertension - Well controlled - Continue home dose of Coreg - Pt is normally on Lisinopril however this has been held for the interim - Monitor BP closely 5. Chronic Kidney Disease, Stage III - Stable - Avoid nephrotoxic agents - Monitor renal function closely 6. Crohn's Disease - Stable - Continue Mesalamine GI Prophylaxis: Proton Pump Inhibitor VTE Prophylaxis: Sub-Q Heparin (Unfractionated), Theraputic Anticoag with Warfarin VTE Mechanical Devices: Intermittant Pneumatic CD Resuscitation Status: CPR: Attempt Resuscitation Kodi Lombardi MD Apr 27, 2016 10:55
--- NOTE | 2016-04-27 11:11 | NUR ---
Social Work: Screening Data: Pt is a 61 y/o male admitted for diabetic food with cellulitis. Pt's PCP is Dr Bright, pt's insurance is [facility] [employer] [facility]. EMR reviewed, pt discussed in rounds. states that pt will have toe amputated on 04/28. No d/c planning needs anticipated at this time. RAILROAD FIRER/FIREMAN will continue to follow. Assessment: Pt who is independent at baseline. Plan: Pt will d/c home via POV when medically stable. states pt to have toe amputated on 04/28. No d/c planning needs anticipated at this time. RAILROAD FIRER/FIREMAN will continue to follow. MAGDIEL Szymanski
[2016-04-27] MEDS: Piper-Tazo 3.375 Gm/50 mL D5W Minibag Plus - Q8H over 4 hrs IV SCH ×4 (11:39→23:36)
[2016-04-27] MEDS: HYDROcodone-APAP 5-325 mg Tablet PO PRN ×2 (16:29→22:11)
--- NOTE | 2016-04-27 18:31 | NUR ---
Activity/LLE Pt amb ind in room and a short distance in hallway this shift. Drsg to LLE remains intact, no strikethrough drainage noted. in this morning to change drsg. Plan is for pt to be NPO after MN tonight and go to OR tomorrow for a toe amputation. Pt is aware of plan, agrees and consent has been signed and is in chart. Pt denied any pain with exception of a "generalized arthritis" ache. PRN analgesic given with effective results. Bed in lowest, locked position and call light in reach.
[2016-04-27 21:40] VITALS: BP 147/85; PULSE 74; RESP 18; O2SAT 96
[2016-04-27] MEDS: Niacin SR 500 mg ER12 Tablet PO SCH (21:52)
[2016-04-28] VITALS (8 sets, daily range): BP systolic 126–147; BP diastolic 73–99; PULSE 58–90; RESP 10–16; O2SAT 93–96
--- NOTE | 2016-04-28 05:43 | NUR ---
Uneventful Night: Pt had an uneventful night, denied pain, chest pain and SOB. Pt slept most of the night, pleasant and cooperative with care.
[2016-04-28 06:45] LABS: INR 1.09 ratio
[2016-04-28] MEDS: Insulin LISPRO 300 Unit/3 mL Inj SUBQ SCH ×4 (07:47→21:27)
[2016-04-28] MEDS: Lactated Ringer's 1,000 ML IV SCH ×2 (07:47→16:16)
[2016-04-28] MEDS: Omega-3 Fatty Acids 1,000 mg Capsule PO SCH (08:30)
--- NOTE | 2016-04-28 08:42 | PCM.PNMED ---
Subjective Date of Service Apr 28, 2016 Subjective Bill has been NPO overnight in preparation for amputation of his left 2nd toe today. His pain has been well controlled. Exam Vital Signs Vital Sign - Last Date Time Temp Pulse Resp B/P Pulse Ox O2 Delivery O2 Flow Rate FiO2 04/28/16 04:48 36.5 67 16 126/73 95 Room Air Intake and Output 04/27/16 04/27/16 04/28/16 Cumulative From/Thru 15:00 23:00 07:00 04/24/16 19:35 - 04/28/16 06:56 Intake Total 619 ml 1580 ml 1469 ml 53529 ml Output Total 1475 ml 3775 ml Balance 619 ml 1580 ml -6 ml 8231 ml Intake Oral 900 ml 400 ml 4437 ml IV Total 619 ml 680 ml 1069 ml 7539 ml Tube Irrigant 30 ml Output Urine Total 1475 ml 3775 ml # Voids 5 15 # Bowel Movements 1 1 Exam General: Comfortable appearing male laying in bed this morning. Awake, alert and oriented. No acute distress. HEENT: Moist mucus membranes. Sclera anicteric Cardiac: RRR. No murmur, rub, or gallop appreciated Resp: Good inspiratory effort, no wheezes, rales, or rhonchi Extremities: The left foot is dressed. Lab and Diagnostics Result Diagram: 04/27/1670604/27/16 07 Microbiology Left 2nd toe culture from 04/25/16: MSSA X-Rays, CTs and MRIs PROCEDURE: X-RAY LEFT FOOT COMPLETE, MINIMUM THREE VIEWS ([id number]) IMPRESSION: No lizette evidence of osteomyelitis. Plain film radiographs can be insensitive to osteomyelitis during the initial 15 days of the disease process. If there is clinical concern for osteomyelitis, then three-phase nuclear medicine bone scan is warranted. Dictated by: Selma Zhou MD, PhD on 04/24/2016 at 18:48 Assessment & Plan Bill is a 60yo male with history of diabetes mellitus with peripheral neuropathy and chronic kidney disease stage III, who presented to [facility] from urgent care with a worsening painful, swollen left second toe. He has been admitted for evaluation and treatment of cellulitis of left second toe, found to have osteomyelitis upon incision of an abscess on the toe. Hospital day #4 1. Osteomyelitis, Left 2nd Toe - Amputation anticipated with podiatry today - Bedside I&D of the toe by Podiatry on 04/26/16 with abscess tracking to the bone at the DIP joint. - Culture from abscess growing MSSA - Antibiotic changed to ceftriaxone 2g daily given the wound culture result. Has received 3 days of therapy with Zosyn and linezolid 2. Atrial Fibrillation, Paroxysmal - Remains in NSR thus far - Continue Warfarin with pharmacy making dose adjustments - INR is currently subtherapeutic as dosing was held in preparation for the toe amputation today - Repeat INR in AM 3. Diabetes Mellitus, Type II - Well controlled - Continue medium dose correctional insulin - Continue blood glucose monitoring - Hold home Glipizide 4. Essential Hypertension - Well controlled - Continue home dose of Coreg - Consider restarting home dose of lisinopril tomorrow, when postoperative - Monitor BP closely 5. Chronic Kidney Disease, Stage III - Stable - Avoid nephrotoxic agents - Monitor renal function closely 6. Crohn's Disease - Stable - Continue home dosing of Mesalamine Pain Evaluation: Adequate Pain Control GI Prophylaxis: Proton Pump Inhibitor VTE Prophylaxis: Sub-Q Heparin (Unfractionated) VTE Mechanical Devices: Intermittant Pneumatic CD Resuscitation Status: CPR: Attempt Resuscitation Attending Statement The patient was seen and examined together with Dr. Mauricio on 04/28/2016 and I agree with the history, exam and plan as outlined in the note above. Faith Mauricio DO Apr 28, 2016 08:42 Kodi Lombardi MD Apr 29, 2016 09:59
[2016-04-28] MEDS ORDERED: fentaNYL-PF 50 mCg/mL 2 mL Inj ONE (09:02)
--- NOTE | 2016-04-28 09:29 | NUR ---
AM meds Holding AM meds d/t pt being NPO for surgery at 1400. Spoke with OR, confirmed pt to be p/u from room at noon. BG checked = 141. pt receiving LR per orders. Addendum: 04/28/16 at 1239 by INESSA AJ [place] [id number]. Pt denied having pain. IV converted to SL. Addendum: 04/28/16 at 1406 by INESSA AJ RN pt back from Surgery. Denies having pain and or nausea. IV fluids infusing LR. Will continue with frequent monitoring.
[2016-04-28] MEDS: cefTRIAXone Inj 2,000 MG in IV Premix 1 EACH IV SCH (11:07)
--- NOTE | 2016-04-28 12:07 | PCM.HPANE ---
Patient Data Date of Service: Apr 28, 2016 Surgeon Admitting Provider:Abdulaziz Carranza Attending Provider:Abdulaziz Carranza Primary Care Physician:Jered Bright MD Other Provider: Reason for Visit Diabetic Foot W/Cellulitis Ht/WT & BMI Height (Feet): 6 Height (Inches): 4.00 Weight (Kilograms): 117.400 Body Mass Index 31.52 Allergies Coded Allergies: clindamycin (Verified Allergy, Severe, RASH, 11/29/14) codeine (Verified Allergy, Severe, HEADACHE, 11/29/14) Past Anesthesia History Anesthesia History: Denies:: Abnormal Airway, Anesthesia Reactions, Difficult Intubation, Fam Anesthesia Reaction, Fam Malignant Hypertherm Diabetes History Hx Diabetes?: Yes Type of Diabetes: Type II Glycemic Control: Oral Medication Current Bedside Blood Glucose: 141 MRSA MRSA: No Medications Blood Thinner: Coumadin Hypertension Medication: Yes Home Meds Incl Beta Natalio: Yes Date Beta Natalio Taken: Apr 28, 2016 Time Beta Natalio Taken: 21:51 Reported Medications Rosuvastatin Calcium 40 Mg Arauys08 Mg PO HS 04/24/16 Warfarin Sodium (Jantoven)7.5 Mg Tablet7.5 Mg PO tuesdays04/24/16 Warfarin Sodium (Jantoven)5 Mg Tablet5 Mg PO DAILY take 5 mg daily except tuesdays. 04/24/16 Fish Oil/Dha/Epa (Fish Oil 1,200 mg Fish Oil)1 Each Capsule2 Capsule PO QAM 04/24/16 Ascorbate Calcium (Vitamin C)500 Mg [id number] Mg PO QAM 04/24/16 Ferrous Sulfate 325 Mg Tablet.dr325 Mg PO DAILY 30 Days Ref 0 04/24/16 Carvedilol 25 Mg Ipukng87 Mg PO BID Ref 0 11/20/14 Lisinopril 5 Mg Tablet5 Mg PO DAILY #60 TABLET Ref 0 11/20/14 Glipizide 5 Mg Pqqsdw30 Mg PO HS 30 Days 11/20/14 Glipizide 5 Mg Tablet5 Mg PO AM 30 Days 11/20/14 Spironolactone 25 Mg Akient48.5 Mg PO DAILY #30 TABLET Ref 0 11/20/14 Niacin 500 Mg Tablet1,000 Mg PO HS 30 Days 11/20/14 Furosemide 40 Mg Dydszu08 Mg PO DAILY 11/20/14 Mesalamine (Lialda)1.2 Gm Tablet.dr2.4 Gm PO DAILY 11/20/14 Fenofibrate 54 Mg Hjqpwe13 Mg PO HS Ref 0 11/20/14 Discontinued Reported Medications Tamsulosin (Flomax)0.4 Mg Capsule0.4 Mg PO DAILY Ref 0 11/29/[address] (Asacol HD)800 Mg Liwqsn188 Mg PO BID 11/29/14 Warfarin Sodium 5 Mg Tablet5 Mg PO 30 Days Ref 0 11/20/14 Warfarin Sodium 5 Mg Tablet7.5 Mg PO 30 Days Ref 0 11/20/14 Rosuvastatin Calcium (Crestor)10 Mg Kfnnzu44 Mg PO HS 30 Days Ref 0 11/20/14 History History of ENT Problems?: No HEENT History: Denies:: Abnormal Airway Difficult Intubation Hearing Problem Hx of Heart Problems?: Yes Cardiovascular History: Positive for:: Atrial Fibrillation (TRANSIENT BOUTS OF A FIB-ANTICOAGULATED) Cardiac Surgery (HEART CATH WNL 1999) Chest Pain (once when he was diag. with diabetes heart cath was normal) Congestive Heart Failure (2004) Edema Hypertension (HYPERLIPIDEMIA) Irregular Heartbeat (TRANSIENT A FIB/FLUTTER) Denies:: Heart Murmur Pacemaker Thrombophlebitis Valvular Heart Disease Hx of Respiratory Problem?: Yes Respiratory History: Denies:: Tuberculosis Use of C-PAP Machine Hx Neurologic Problems?: No Neurological History: Denies:: Alzheimer's Disease CVA Dementia Headaches Parkinson's Disease Seizures Hx of GI Problems?: Yes Gastrointestinal History: Positive for:: Rectal Bleeding (ulcerative colitis) Denies:: Diverticulitis (DIVERTICULOSIS) Gastroesphageal Reflux Gastrointestinal Bleeding Heartburn Hepatitis Hiatal Hernia Hx of Problems?: No Genitourinary History: Denies:: HX of Hemodialysis (MILD RENAL INSUFFICIENCY- IMPROVING) Kidney Stones (HX PREVIOUS STONES RT URETERAL STONE=CURRENT PROBLEM) Urinary Tract Infection Male Hx: Denies:: Prostate Problems Scrotal Mass Testicular Surgery Skin History: Denies:: History Skin Disorders? Pressure Ulcers Hx Musculoskeletal Problems?: Yes Musculoskeletal History: Denies:: Back Injury (back pain) Hx of Psycho/Social Problems?: Yes Psycho Social History: Positive for:: Hx Depression Hx Surgeries?: Yes (MULT CYSTO/STENT/STONE EXTRACTIONS,HEART CATH) Hx Any Other Health Problems?: Yes Other History: Positive for:: Hospitalization (2004 for CHF,2014 FOR KIDNEY STONE) Denies:: Cancer Endocrine Disease Thyroid Disease History Blood Transfusions: Denies:: Accept Blood Products? Blood Transfuse Reaction Blood Transfusions Hx Diabetes: YesBedside Blood Glucose: 141 Hx Alcohol Use: No (QUIT 1977)Hx Substance Use: No Smoking Status: Never Smoker Have You Smoked inLast 12 mo: No Stop/Bang Treated for Sleep Apnea?: No S-Snoring: Do You Snore Loudly: No T-Tired: feel tired, fatigued: Yes O-Obsered: Observed not breath: No P-Blood Pressure: treated: No B- Body Mass Index > 35 kg/m2: No A- Age over 50: Yes N- Neck Large Circumference: No G- Gender Male: Yes JIMBO Total Score: 2 Risk Assessment Category Category 1A: Patient has history of documented sleep apnea, and HAS NOT received any narcotic, sedative or anesthesia administration during this stay. Category 1B: Patient has history of documented sleep apnea, and HAS received any narcotic , sedative or anesthesia administration during this stay Category 2: Patient has SUSPECTED Obstructive Sleep Apnea, and HAS received any narcotic , sedative or anesthesia administration during this stay. Category 3: Patient has SUSPECTED Obstructive Sleep Apnea and HAS NOT received narcotic, sedative or anesthesia administration during this stay. Category 4: Outpatient in Procedural Areas with known sleep apnea or who screen positive for High Risk via the STOP/BANG questionnaire. Exam Exam Vital Signs Vital Signs Date Time Temp Pulse Resp B/P Pulse Ox O2 Delivery O2 Flow Rate FiO2 04/28/16 11:12 36.6 80 16 140/89 95 Room Air 04/28/16 04:48 36.5 67 16 126/73 95 Room Air General Appearance: Alert, Oriented X3, Cooperative HEENT/AIRWAY: MP 3 Lungs: Clear to Auscultation Heart: Regular Rate/Rhythm Meds/Labs/Diagnostics Admission Meds Current Medications Ceftriaxone Sodium/Dextrose/ Premix (Rocephin Inj/IV Premix) 50 ml @ 100 mls/ hr Q24 IV Last administered on 04/28/16t 11:07; Start 04/28/16 at 10:08 Bedside Blood Glucose: 141 Labs Test 04/24/16 22:31 04/25/16 02:15 04/25/16 05:45 04/26/16 06:00 Erythrocyte Sedimentation Rate 67mm/hr (0-30) Lactic Acid Level 0.5mmol/L (0.4-2.0) C-Reactive Protein 16.6mg/dL (0.0-0.5) Hold Burger Top Tube Received (Received) Urine Color Straw (YELLOW) Urine Appearance Clear (CLEAR,HAZY) Urine pH 6.0 (5.0-8.0) Urine Specific [place] 1.015 (1.003-1.035) Urine Protein Negativemg/dL (NEG,TRACE) Urine Glucose (UA) Negativemg/dL (NEGATIVE) Urine Ketones Negativemg/dL (NEGATIVE) Urine Occult Blood Negative (NEGATIVE) Urine Nitrite Negative (NEGATIVE) Urine Bilirubin Negative (NEGATIVE) Urine Urobilinogen Normalmg/dL (NORMAL) Urine Leukocyte Esterase Negative (NEGATIVE) Urine RBC 0-2/hpf (0-2) Urine WBC 0-5/hpf (0-5) Urine Epithelial Cells Occasional/hpf (NONE-MOD) Urine Crystals None seen (NONE SEEN) Urine Bacteria Few/hpf (NONE-FEW) Urine Hyaline Casts None/lpf (NONE) Urine Granular Casts None seen (NONE SEEN) Urine Waxy Casts None seen (NONE SEEN) Urine Red Blood Cell Casts None seen (NONE SEEN) Urine White Blood Cell Casts None seen (NONE SEEN) Urine Mucus None seen (None Seen) Urine Trichomonas None seen (NONE SEEN) Urine Yeast None (NONE SEEN) Urinalysis Comment None Urine Culture Reflexed Not indicated Hemoglobin A1c 6.5% (4.8-5.6) Triglycerides Level 149mg/dL (0-149) Cholesterol Level 117mg/dL (100-199) LDL Cholesterol, Calculated 60.200mg/dL (0-99) VLDL Cholesterol 29.800mg/dL HDL Cholesterol 27mg/dL (>39) Cholesterol/HDL Ratio 4.33 (0.0-4.4) Phosphorus Level 3.0mg/dL (2.5-4.9) Magnesium Level 1.9mg/dL (1.6-2.6) Procalcitonin 0.06ng/mL (See Comment) Test 04/27/16 07:07 04/28/16 06:05 White Blood Count 5.5th/mm3 (3.8-10.1) Red Blood Count 4.04mil/mm3 (4.40-5.80) Hemoglobin 11.9g/dL (13.8-17.2) Hematocrit 36.0% (41.0-50.0) Mean Corpuscular Volume 89.1fL (81-100) Mean Corpuscular Hemoglobin 29.5pg (27.0-35.0) Mean Corpuscular Hemoglobin Concent 33.1% (32.0-37.0) Red Cell Distribution Width 13.8% (12.3-15.4) Platelet Count 196bil/L (150-400) Neutrophils (%) (Auto) 58.5% (40-74) Lymphocytes (%) (Auto) 23.1% (14-46) Monocytes (%) (Auto) 12.1% (4-12) Eosinophils (%) (Auto) 5.3% (0-5) Basophils (%) (Auto) 0.6% (0-3) Sodium Level 141mEq/L (134-144) Potassium Level 4.8mEq/L (3.5-5.2) Chloride Level 105mEq/L (97-108) Carbon Dioxide Level 21mmol/L (18-29) Blood Urea Nitrogen 19mg/dL (8-27) Creatinine 1.38mg/dL (0.76-1.27) Estimat Glomerular Filtration Rate 55mL/min (>59) Glucose Level 128mg/dL (60-99) Calcium Level 9.3mg/dL (8.5-10.1) Total Bilirubin 0.3mg/dL (0.0-1.2) Aspartate Amino Transf (AST/SGOT) 19U/L (0-50) Alanine Aminotransferase (ALT/SGPT) 15U/L (0-44) Alkaline Phosphatase 47U/L (25-160) Total Protein 6.9g/dL (6.4-8.4) Albumin 3.8g/dL (3.4-5.0) Prothrombin Time 11.7sec (8.1-12.5) Prothromb Time International Ratio 1.09ratio Plan Impression Patient chart reviewed, patient interviewed and anesthestic plan with risks, benefits, and alternatives discussed, and informed consent obtained. NPO Status: 0800 ASA Physical Status: ASA3 Severe Disease ( ) Anesthetic Plan: GA Bene/Risks/Altern/Consents: Yes HP Complete Prior to Induction: Yes Bry Gandara MD Apr 28, 2016 12:07
[2016-04-28] MEDS ORDERED: Lactated Ringer's 1,000 ML IV SCH (12:15)
[2016-04-28] MEDS ORDERED: Atropine 0.4 mg/mL Inj IVPUSH PRN (12:15)
[2016-04-28] MEDS ORDERED: hydrALAZINE 20 mg/mL Inj IVPUSH PRN (12:15)
[2016-04-28] MEDS ORDERED: Ondansetron 2 mg/mL 2 mL Inj IVPUSH PRN (12:15)
[2016-04-28] MEDS ORDERED: Lactated Ringer's 500 ML IV PRN (12:15)
[2016-04-28] MEDS ORDERED: fentaNYL-PF 50 mCg/mL 2 mL Inj IVPUSH PRN (12:15)
[2016-04-28] MEDS ORDERED: MetoCLOpramide 5 mg/mL 2 mL Inj IVPUSH PRN (12:15)
[2016-04-28] MEDS ORDERED: HYDROmorphone 1 mg/mL Inj IVPUSH PRN (12:15)
[2016-04-28] MEDS ORDERED: Labetalol 5 mg/mL 4 mL Inj IV PRN (12:15)
[2016-04-28] MEDS ORDERED: EPHEDrine Sulfate 50 mg/mL Inj IVPUSH PRN (12:15)
[2016-04-28] MEDS ORDERED: Phenylephrine 10,000 mCg/mL Inj IVPUSH PRN (12:15)
[2016-04-28] MEDS ORDERED: Lactated Ringer's 1,000 ML IV ONE (12:21)
[2016-04-28] MEDS ORDERED: Bupivacaine-MPF 0.5% 30 mL Inj INFILTRATE ONE (12:45)
[2016-04-28] MEDS ORDERED: oxyCODONE-Acetamin 5-325 mg Tablet PO PRN (13:20)
--- NOTE | 2016-04-28 13:26 | PCM.PODPO ---
Podiatry Operative Report Date of Service: Apr 28, 2016 Date of Service Apr 28, 2016 Pre Operative Diagnosis Necrotic second toe left foot, diabetic foot infection second toe left foot Post Operative Diagnosis All necrotic second toe left foot, diabetic foot infection left foot, probable gout Procedure Disarticulation amputation second metatarsal phalangeal joint left foot Surgeon Surgeon: Abdulaziz Carranza Assistants: None Indication for Procedure Severe soft tissue necrosis and probable osteomyelitis second digit left foot Findings Seen, chalky material consistent with tophaceous uric acid deposition second metatarsal phalangeal joint Details of Procedure Patient was placed on the table in the supine position and surgical timeout observe. Upon initiation of intravenous sedation the second digit was anesthetized utilizing approximately 6 cc 1% lidocaine plain and 0.5% Marcaine plain and 1-1 mix via a proximal digital block. A well-padded pneumatic ankle tourniquet was applied but not utilized intraoperatively. The foot was prepped and draped in the usual sterile manner. Incision lines were demarcated and 10 and described converging [place] semi-elliptical incisions extending from dorsal to plantar and along the medial and lateral aspects of the base of the second toe. These incisions were deepened via sharp dissection to the level of the joint and capsule. The flexor and extensor tendons were retracted slightly , transected, collateral ligaments were divided and the toe removed from the surgical field. The site was copiously irrigated. There was noted to be a chalky deposition and chondral thinning of the second metatarsal phalangeal joint consistent with chronic gouty arthritis. Subcutaneous tissues were reapproximated and closed with 3-0 Vicryl and skin with 3-0 Prolene. Mild postoperative bleeding was stayed with several minutes direct pressure and a Xeroform and gauze noncompressive dressing and bandage applied. The toe was sent to pathology for gross and microscopic exam, soft tissue specimen sent for culture and sensitivity, soft tissue sent for crystal analysis. The patient tolerated the procedure well and left the operating suite in apparently satisfactory condition there were no complications. Grafts, Implants: None Complications There were no periprocedural complications identified. Condition Stable Anesthetic Administered: MAC Drains: None Catheters: None Output, Estimated Blood Loss: 10 Blood Admin during surgery: No Surgical Cast or Splint: Post-op Boot Surgical Specimen Removed: Yes Specimen sent to Pathology: Yes Post Operative Plan Patient will return to the floor for continued intravenous antibiotics and monitoring of his healing today would anticipate discharge in 1-2 days. Dean Garcia DPM Apr 28, 2016 13:26
--- NOTE | 2016-04-28 13:28 | PCM.CONPHA ---
Subjective Left second toe infection Reason for Pharmacy Consult: Anticoagulation Management Assessment/Plan Assessment/Plan Warfarin Management by Pharmacy Indication: Afib CHADS2-VASc: 3 Home Dose: Warfarin 7.5 mg Tues; 5 mg AOD INR Goal: 2-3 Duration: Unknown Anticoagulation Trends Lab Date Result Dose INR 04/24/16 3.06 Held INR 04/25/16 2.90 Held INR 04/26/16 1.74 Held INR 04/27/16 1.25 Held INR 04/28/16 1.09 Therapeutic bridge therapy: No (heparin SQ ppx) Assessment/Plan - Subtherapeutic INR following held doses for toe amputation (scheduled for ). -Will restart warfarin today at 7.5 mg post-op. Currently no bridge therapy planned. -Pharmacy to monitor INR/CBC/signs of bleeding while inpatient. Bryant Mckenna Dwaine Pharm.D. Stephan Hurtado Apr 28, 2016 13:28
[2016-04-28] MEDS: Heparin 5,000 Unit/mL Inj SUBQ SCH ×2 (14:17→17:12)
[2016-04-28] MEDS: Ascorbic Acid 500 mg Tablet PO SCH (14:18)
--- NOTE | 2016-04-28 14:37 | PCM.ANEP1 ---
Post Anesthesia Phase 1 PACU Phase 1 Assessment Date of Service: Apr 28, 2016 Vital Signs Vital Signs Date Time Temp Pulse Resp B/P Pulse Ox O2 Delivery O2 Flow Rate FiO2 04/28/16 14:29 36.6 75 16 144/87 96 Room Air 04/28/16 13:40 58 14 143/80 94 Room Air 04/28/16 13:30 62 14 140/80 96 Room Air 04/28/16 13:20 67 12 140/80 93 Room Air 04/28/16 13:12 36.6 72 10 147/99 96 Room Air 04/28/16 11:12 36.6 80 16 140/89 95 Room Air Anesthetic Administered: MAC Level of Alertness: Awake, talking Pain: Yes Pain Scale Score: 4 Nausea or Vomiting: No Oxygen Delivery: Room Air Bry Gandara MD Apr 28, 2016 14:37
--- NOTE | 2016-04-28 14:38 | PCM.ANEP2 ---
Post Anesthesia Evaluation ASA/CMS Post Anesthesia Date of Service: Apr 28, 2016 VS in Patient's Normal Range?: Yes Resp Stable; Airway Patent?: Yes CV Function & Hydration Stable: Yes Mental Status Recovered?: Yes Pain control Satisfactory?: Yes N/V Control Satisfactory?: Yes Bry Gandara MD Apr 28, 2016 14:38
[2016-04-28] MEDS ORDERED: Warfarin 5 MG, Warfarin 2.5 MG PO ONE ×2 (17:00)
--- NOTE | 2016-04-28 17:56 | PCM.PNPOD ---
Subjective Date of Service: Apr 28, 2016 Date of Service: Apr 28, 2016 Visit Information: Reason for Visit Diabetic Foot W/Cellulitis Surgery/Surgery Date Post-Op Day # Date of Admission: Apr 24, 2016 at 19:18 Hospital Day # Subjective: Patient is seen the evening of surgery and has no complaints other than being anxious to return home. Objective Vital Sign - Last Date Time Temp Pulse Resp B/P Pulse Ox O2 Delivery O2 Flow Rate FiO2 04/28/16 14:37 Room Air 04/28/16 14:29 36.6 75 16 144/87 96 Intake and Output 04/27/16 04/27/16 04/28/16 Cumulative From/Thru 15:00 23:00 07:00 04/24/16 19:35 - 04/28/16 06:56 Intake Total 619 ml 1580 ml 1469 ml 00008 ml Output Total 1475 ml 3775 ml Balance 619 ml 1580 ml -6 ml 8231 ml Intake Oral 900 ml 400 ml 4437 ml IV Total 619 ml 680 ml 1069 ml 7539 ml Tube Irrigant 30 ml Output Urine Total 1475 ml 3775 ml # Voids 5 15 # Bowel Movements 1 1 Result Diagram: 04/27/16 0707 04/27/16 0707 Lab Test 04/24/16 22:31 04/25/16 02:15 04/25/16 05:45 04/26/16 06:00 Erythrocyte Sedimentation Rate 67mm/hr (0-30) Lactic Acid Level 0.5mmol/L (0.4-2.0) C-Reactive Protein 16.6mg/dL (0.0-0.5) Hold Burger Top Tube Received (Received) Urine Color Straw (YELLOW) Urine Appearance Clear (CLEAR,HAZY) Urine pH 6.0 (5.0-8.0) Urine Specific [place] 1.015 (1.003-1.035) Urine Protein Negativemg/dL (NEG,TRACE) Urine Glucose (UA) Negativemg/dL (NEGATIVE) Urine Ketones Negativemg/dL (NEGATIVE) Urine Occult Blood Negative (NEGATIVE) Urine Nitrite Negative (NEGATIVE) Urine Bilirubin Negative (NEGATIVE) Urine Urobilinogen Normalmg/dL (NORMAL) Urine Leukocyte Esterase Negative (NEGATIVE) Urine RBC 0-2/hpf (0-2) Urine WBC 0-5/hpf (0-5) Urine Epithelial Cells Occasional/hpf (NONE-MOD) Urine Crystals None seen (NONE SEEN) Urine Bacteria Few/hpf (NONE-FEW) Urine Hyaline Casts None/lpf (NONE) Urine Granular Casts None seen (NONE SEEN) Urine Waxy Casts None seen (NONE SEEN) Urine Red Blood Cell Casts None seen (NONE SEEN) Urine White Blood Cell Casts None seen (NONE SEEN) Urine Mucus None seen (None Seen) Urine Trichomonas None seen (NONE SEEN) Urine Yeast None (NONE SEEN) Urinalysis Comment None Urine Culture Reflexed Not indicated Hemoglobin A1c 6.5% (4.8-5.6) Triglycerides Level 149mg/dL (0-149) Cholesterol Level 117mg/dL (100-199) LDL Cholesterol, Calculated 60.200mg/dL (0-99) VLDL Cholesterol 29.800mg/dL HDL Cholesterol 27mg/dL (>39) Cholesterol/HDL Ratio 4.33 (0.0-4.4) Phosphorus Level 3.0mg/dL (2.5-4.9) Magnesium Level 1.9mg/dL (1.6-2.6) Procalcitonin 0.06ng/mL (See Comment) Test 04/27/16 07:07 04/28/16 06:00 04/28/16 06:05 White Blood Count 5.5th/mm3 (3.8-10.1) Red Blood Count 4.04mil/mm3 (4.40-5.80) Hemoglobin 11.9g/dL (13.8-17.2) Hematocrit 36.0% (41.0-50.0) Mean Corpuscular Volume 89.1fL (81-100) Mean Corpuscular Hemoglobin 29.5pg (27.0-35.0) Mean Corpuscular Hemoglobin Concent 33.1% (32.0-37.0) Red Cell Distribution Width 13.8% (12.3-15.4) Platelet Count 196bil/L (150-400) Neutrophils (%) (Auto) 58.5% (40-74) Lymphocytes (%) (Auto) 23.1% (14-46) Monocytes (%) (Auto) 12.1% (4-12) Eosinophils (%) (Auto) 5.3% (0-5) Basophils (%) (Auto) 0.6% (0-3) Sodium Level 141mEq/L (134-144) Potassium Level 4.8mEq/L (3.5-5.2) Chloride Level 105mEq/L (97-108) Carbon Dioxide Level 21mmol/L (18-29) Blood Urea Nitrogen 19mg/dL (8-27) Creatinine 1.38mg/dL (0.76-1.27) Estimat Glomerular Filtration Rate 55mL/min (>59) Glucose Level 128mg/dL (60-99) Calcium Level 9.3mg/dL (8.5-10.1) Total Bilirubin 0.3mg/dL (0.0-1.2) Aspartate Amino Transf (AST/SGOT) 19U/L (0-50) Alanine Aminotransferase (ALT/SGPT) 15U/L (0-44) Alkaline Phosphatase 47U/L (25-160) Total Protein 6.9g/dL (6.4-8.4) Albumin 3.8g/dL (3.4-5.0) Prothrombin Time 11.7sec (8.1-12.5) Prothromb Time International Ratio 1.09ratio Exam General: Alert, Oriented X3, Cooperative Lower Extremities: Left: Edema localized Bilateral: Extremity warm Lower Extremity Pulses: Palpable: Left Dorsalis Pedis Left Posterior Tibal Right Dorsalis Pedis Right Posterior Tibal Surgical Cast or Splint: Post-op Boot Additional Information: Patient found resting comfortably having eaten a full meal and is in no distress. Dressing dry and intact and he is noted at this visit to have tophi of the left elbow and several knuckles of the hand strongly suggestive of untreated gout. Assessment & Plan Impression Patient doing well postoperatively, he likely needs anti-hyperuricemic therapy, we will check serum uric acid and possible discharge tomorrow Problems: Plan Check serum uric acid, dressing change tomorrow, consider discharge with follow- up in the podiatry clinic VTE Prophylaxis: Sub-Q Heparin (Unfractionated) Dean Garcia DPM Apr 28, 2016 17:56
[2016-04-28] MEDS: 0.9% Sodium Chloride 1,000 ML IV SCH (18:32)
[2016-04-28] MEDS: Niacin SR 500 mg ER12 Tablet PO SCH (21:23)
[2016-04-28] MEDS: HYDROcodone-APAP 5-325 mg Tablet PO PRN (21:23)
[2016-04-29] MEDS: Heparin 5,000 Unit/mL Inj SUBQ SCH ×2 (00:46→07:37)
[2016-04-29] MEDS: HYDROcodone-APAP 5-325 mg Tablet PO PRN ×3 (01:47→14:15)
[2016-04-29 04:37] VITALS: BP 122/57; PULSE 77; RESP 18; O2SAT 93
[2016-04-29] MEDS: 0.9% Sodium Chloride 1,000 ML IV SCH (05:00)
--- NOTE | 2016-04-29 06:45 | NUR ---
Pain Pt reporting pain in right foot, aching up to 6/10 and requiring 2 tabs of Patrick to keep pain under control q4-5 hrs. Pt reporting that left foot is not having pain. Pt up SBA with FWW, heel wt bearing. Pt able to sleep intermittently throughout the night.
[2016-04-29 07:00] LABS: INR 1.06 ratio
[2016-04-29 07:01] LABS: BASOPHILS % (AUTO) 0.3 % (0-3); EOSINOPHILS % (AUTO) 2.8 % (0-5); MONOCYTES % (AUTO) 12.9 % (4-12); Mean Corpuscular Hemoglobin 29.4 pg (27.0-35.0); NEUTROPHILS % (AUTO) 72.8 % (40-74); Platelet Count 171 bil/L (150-400)
[2016-04-29] MEDS: Insulin LISPRO 300 Unit/3 mL Inj SUBQ SCH ×2 (07:32→11:44)
[2016-04-29] MEDS: cefTRIAXone Inj 2,000 MG in IV Premix 1 EACH IV SCH (07:35)
[2016-04-29] MEDS: Ascorbic Acid 500 mg Tablet PO SCH (07:37)
[2016-04-29] MEDS: Omega-3 Fatty Acids 1,000 mg Capsule PO SCH (07:37)
--- NOTE | 2016-04-29 10:32 | NUR ---
Social Work-readiness for discharge: Data:EMR reviewed. Pt is on day 5 of hospitalization for diabetic foot per H&P. Pt may be medically stable to discharge home later today. SW followed up with pt at bedside, SW role explained. Pt has surgery yesterday with Podiatry and had his toe amputated. Podiatry will change dressing prior to discharge and then have pt follow up after discharge with them. Pt declines any services and plans to return to work. Pt's sister to provide transprot home at discharge. Per RN notes, pt has been up ambulating in his room. No discharge needs identified. SW will continue to follow if needs arise. Assessment:pt who is independent at baseline. Plan:Pt to discharge home when medically stable via POV. Pt to follow up with Podiatry post discharge. No discharge needs identified. SW will continue to follow if needs arise. MAGDIEL Carver
[2016-04-29 11:22] VITALS: BP 124/73; PULSE 84; RESP 16; O2SAT 95
[2016-04-29] MEDS ORDERED: AMOX-363 PO (12:18)
--- NOTE | 2016-04-29 12:28 | PCM.DIMED ---
Faith Mauricio DO 04/29/16 0848: Discharge Instructions Date of Service Apr 29, 2016 Dates of Hospitalization Apr 24, 2016 at 19:18 Discharge Diagnosis Discharge Diagnosis Osteomyelitis, Left 2nd Toe status post amputation on 04/28/16 Atrial Fibrillation, Paroxysmal Diabetes Mellitus, Type II Essential Hypertension, Well controlled Chronic Kidney Disease, Stage III, stable Crohn's Disease, Stable Probable gout with the presence of tophi Test Results Wound culture: methicillin sensitive staph aureus Diet Diabetic Activity Other (Balance rest with activity, wear the post op shoe Dr Garcia has given you. ) Call your provider Fever or Chills, Shortness of breath, Bleeding, Chest pain, Vomitting, Excessive diarrhea, Weakness (unilateral) Patient Instructions You will resume your home medications with the addition of antibiotics and a medication for management of gout. Take 1 tablet of Augmentin by mouth twice daily for 5 days. Take 1 tablet of colchicine by mouth twice daily. Please follow up with the INR (protime) clinic in 2-3 days as your warfarin dose may need to be adjusted. Follow up with Dr Garcia (podiatry) on Thursday, May 05; please call his office to determine an appointment time. Follow-up plan It is important that you keep your follow up appointment with Dr Garcia for evaluation of your feet and amputation wound. Follow-up Provider: Dean Garcia DPM Follow-up with PCP in: 1 week (Thursday , 05/05/16) Provider: Jered Bright MD Follow-up in: 2 weeks (Please call to schedule this appointment) Kodi Lombardi MD 04/30/16 1050: Faith Mauricio DO Apr 29, 2016 08:48 Kodi Lombardi MD Apr 30, 2016 10:50
[2016-04-29] MEDS ORDERED: COLC0.6C3 PO (12:29)
--- NOTE | 2016-04-29 12:59 | PCM.PNPOD ---
Subjective Date of Service: Apr 29, 2016 Date of Service: Apr 29, 2016 Visit Information: Reason for Visit Diabetic Foot W/Cellulitis Surgery/Surgery Date Post-Op Day # Date of Admission: Apr 24, 2016 at 19:18 Hospital Day # Subjective: Patient is seen in 24 hour status post amputation second digit left foot and has no left foot complaints however has had increased swelling and pain on the inner aspect of the right ankle noted since yesterday. Patient states he is prone to these episodes periodically. He denies trauma although he has been ambulating about his hospital room without the benefit of Street shoes and orthotic. Patient serum uric acid 6.7. Objective Vital Sign - Last Date Time Temp Pulse Resp B/P Pulse Ox O2 Delivery O2 Flow Rate FiO2 04/29/16 11:22 36.7 84 16 124/73 95 Room Air Intake and Output 04/28/16 04/28/16 04/29/16 Cumulative From/Thru 15:00 23:00 07:00 04/24/16 19:35 - 04/29/16 05:51 Intake Total 1006 ml 983 ml 1328 ml 81187 ml Output Total 10 ml 750 ml 550 ml 5085 ml Balance 996 ml 233 ml 778 ml 96574 ml Intake Oral 550 ml 300 ml 5287 ml IV Total 1006 ml 433 ml 1028 ml 06360 ml Tube Irrigant 30 ml Output Urine Total 750 ml 550 ml 5075 ml Estimated Blood Loss 10 ml 10 ml # Voids 15 # Bowel Movements 1 0 2 Result Diagram: 04/29/16 0620 04/27/16 0707 Lab Test 04/24/16 22:31 04/25/16 02:15 04/25/16 05:45 04/26/16 06:00 Erythrocyte Sedimentation Rate 67mm/hr (0-30) Lactic Acid Level 0.5mmol/L (0.4-2.0) C-Reactive Protein 16.6mg/dL (0.0-0.5) Hold Burger Top Tube Received (Received) Urine Color Straw (YELLOW) Urine Appearance Clear (CLEAR,HAZY) Urine pH 6.0 (5.0-8.0) Urine Specific [place] 1.015 (1.003-1.035) Urine Protein Negativemg/dL (NEG,TRACE) Urine Glucose (UA) Negativemg/dL (NEGATIVE) Urine Ketones Negativemg/dL (NEGATIVE) Urine Occult Blood Negative (NEGATIVE) Urine Nitrite Negative (NEGATIVE) Urine Bilirubin Negative (NEGATIVE) Urine Urobilinogen Normalmg/dL (NORMAL) Urine Leukocyte Esterase Negative (NEGATIVE) Urine RBC 0-2/hpf (0-2) Urine WBC 0-5/hpf (0-5) Urine Epithelial Cells Occasional/hpf (NONE-MOD) Urine Crystals None seen (NONE SEEN) Urine Bacteria Few/hpf (NONE-FEW) Urine Hyaline Casts None/lpf (NONE) Urine Granular Casts None seen (NONE SEEN) Urine Waxy Casts None seen (NONE SEEN) Urine Red Blood Cell Casts None seen (NONE SEEN) Urine White Blood Cell Casts None seen (NONE SEEN) Urine Mucus None seen (None Seen) Urine Trichomonas None seen (NONE SEEN) Urine Yeast None (NONE SEEN) Urinalysis Comment None Urine Culture Reflexed Not indicated Hemoglobin A1c 6.5% (4.8-5.6) Triglycerides Level 149mg/dL (0-149) Cholesterol Level 117mg/dL (100-199) LDL Cholesterol, Calculated 60.200mg/dL (0-99) VLDL Cholesterol 29.800mg/dL HDL Cholesterol 27mg/dL (>39) Cholesterol/HDL Ratio 4.33 (0.0-4.4) Phosphorus Level 3.0mg/dL (2.5-4.9) Magnesium Level 1.9mg/dL (1.6-2.6) Procalcitonin 0.06ng/mL (See Comment) Test 04/27/16 07:07 04/28/16 06:00 04/29/16 06:20 Sodium Level 141mEq/L (134-144) Potassium Level 4.8mEq/L (3.5-5.2) Chloride Level 105mEq/L (97-108) Carbon Dioxide Level 21mmol/L (18-29) Blood Urea Nitrogen 19mg/dL (8-27) Creatinine 1.38mg/dL (0.76-1.27) Estimat Glomerular Filtration Rate 55mL/min (>59) Glucose Level 128mg/dL (60-99) Calcium Level 9.3mg/dL (8.5-10.1) Total Bilirubin 0.3mg/dL (0.0-1.2) Aspartate Amino Transf (AST/SGOT) 19U/L (0-50) Alanine Aminotransferase (ALT/SGPT) 15U/L (0-44) Alkaline Phosphatase 47U/L (25-160) Total Protein 6.9g/dL (6.4-8.4) Albumin 3.8g/dL (3.4-5.0) Uric Acid 6.7mg/dL (2.6-7.2) White Blood Count 9.1th/mm3 (3.8-10.1) Red Blood Count 3.91mil/mm3 (4.40-5.80) Hemoglobin 11.5g/dL (13.8-17.2) Hematocrit 35.2% (41.0-50.0) Mean Corpuscular Volume 90.0fL (81-100) Mean Corpuscular Hemoglobin 29.4pg (27.0-35.0) Mean Corpuscular Hemoglobin Concent 32.7% (32.0-37.0) Red Cell Distribution Width 13.9% (12.3-15.4) Platelet Count 171bil/L (150-400) Neutrophils (%) (Auto) 72.8% (40-74) Lymphocytes (%) (Auto) 10.9% (14-46) Monocytes (%) (Auto) 12.9% (4-12) Eosinophils (%) (Auto) 2.8% (0-5) Basophils (%) (Auto) 0.3% (0-3) Prothrombin Time 11.4sec (8.1-12.5) Prothromb Time International Ratio 1.06ratio Diagnostics Name uric acid 6.7 Exam General: Alert, Oriented X3, Cooperative Lower Extremities: Left: Edema localized Bilateral: Extremity warm Lower Extremity Pulses: Palpable: Left Dorsalis Pedis Left Posterior Tibal Right Dorsalis Pedis Right Posterior Tibal Surgical Cast or Splint: Post-op Boot Additional Information: Reexam shows dressing to be dry and intact minimal sanguinous drainage. Incision appears well coapted erythema has resolved essentially no evidence of residual infection and no suggestion of early dehiscence. Right ankle is edematous on the medial aspect with point tenderness along the posterior tibial tendon there is no calor or hyperemia. Assessment & Plan Impression Patient doing well postoperatively, I suspicion is patient does have chronic undiagnosed gout and this may be the approximate cause of medial right ankle pain at present. Problems: Plan I spoke to Dr. Bonds and is agreed patient may be discharged today, I have reviewed postop instructions with him and recommend follow-up on 05/05/2016 in the clinic. I also recommended short trial of colchicine 0.6 mg one by mouth twice a day for 3-4 days patient is made aware potential for GI maleffects. Additionally patient should be placed on a broad-spectrum antibiotic, cephalexin would be appropriate. VTE Prophylaxis: Sub-Q Heparin (Unfractionated) Dean Garcia DPM Apr 29, 2016 12:58
[2016-04-29 13:51] VITALS: BP 110/71; PULSE 99; RESP 18; O2SAT 95
--- NOTE | 2016-04-29 14:10 | NUR ---
Social Work-discharge: Data:EMR Reviewed. Pt is on day 5 of hospitalization for diabetic foot per H&P. Pt is medically stable for discharge today. SW confirmed plan at bedside of home no needs. Pt's sister to provide transport home today. Pt to follow up with podiatry outpt. No discharge needs identified. All updated and agreeable to plan. Assessment:Pt who is independent at baseline. Plan:Pt to discharge home today via POV.No discharge needs identified. All updated and agreeable to plan. MAGDIEL Carver
--- NOTE | 2016-04-29 14:36 | NUR ---
Discharge Pt d/c home with sister at 1430 via wc by SHELLIE. Pt medicated for pain with 1 PO Rx. IV d/c prior to leaving. All personal belongings left with pt, including cleansing solutions/packing used by Podiatry. Pt education provided re cares of L foot post 2nd toe amputation, follow up with Coumadin clinic in 2-3 days and Podiatry appt to be scheduled for NEXT Mon. Discharge info repeated to pts sister per pts request.
[2016-04-29] MEDS ORDERED: Warfarin 5 MG, Warfarin 2.5 MG PO ONE ×2 (17:00)
--- NOTE | 2016-04-29 19:45 | PCM.DC.MED ---
Discharge Summary Date of Service Apr 29, 2016 Dates of Hospitalization Date of Hospital Admission Apr 24, 2016 at 19:18 Date of Discharge: Apr 29, 2016 Providers: Admitting Physician: Abdulaziz Carranza Primary Care Physician: Jered Bright MD Attending Physician: Abdulaziz Carranza Diagnosis at Time of Discharge Diagnosis at Time of Discharge Osteomyelitis, Left 2nd Toe status post amputation on 04/28/16 Atrial Fibrillation, Paroxysmal Diabetes Mellitus, Type II Essential Hypertension, Well controlled Chronic Kidney Disease, Stage III, stable Crohn's Disease, Stable Probable gout with the presence of tophi Procedures XRay, CTs & MRIs PROCEDURE: X-RAY LEFT FOOT COMPLETE, MINIMUM THREE VIEWS ([id number]) IMPRESSION: No lizette evidence of osteomyelitis. Plain film radiographs can be insensitive to osteomyelitis during the initial 15 days of the disease process. If there is clinical concern for osteomyelitis, then three-phase nuclear medicine bone scan is warranted. Dictated by: Selma Zhou MD, PhD on 04/24/2016 at 18:48 Invasive Procedures Disarticulation amputation second metatarsal phalangeal joint left foot on with Dr Garcia Post operative diagnosis: All necrotic second toe left foot, diabetic foot infection left foot, probable gout Brief History Per H&P by Dr Harper: Patient is a 60 year-old diabetic male who presented to urgent care this afternoon. He states that his left second toe has been discolored for years. 1- 2 weeks ago, he noted worsening coloration. Two days ago, he began having shooting pain that lasted all night and was associated with mild chills and subjective fevers. Last night he felt better but this morning it seemed more swollen so he decided to work all day and go to urgent care after work. He has very little pain because of his neuropathy. In urgent care, he was surprised to see the extent of change in his toe since the morning. Much more swollen, more discoloration. Urgent care marge labs and had 3-view x-rays taken then sent him to [facility] for IV antibiotics. Vitals were stable: 97.5; 127/79; 79; 18; 97% on room air; 1/10 pain level. Labs: CRP 19.2; H&H 12.0 & 36.2; BUN & Cr = 46 & 1.89 (note, elevated since 2011 and at baseline ); sed rate 17. The patient was stable on the date of discharge with minimal postoperative pain , normal vital signs. General: Comfortable appearing male sitting up in bed this morning. Awake, alert and oriented. No acute distress. HEENT: Moist mucus membranes. Sclera anicteric Cardiac: RRR. No murmur, rub, or gallop appreciated Resp: Good inspiratory effort, no wheezes, rales, or rhonchi Extremities: The left foot is dressed with an armando wrap, amputation wound under clean and dry dressing. Hospital Course The following were address during this hospitalization: Discharged on hospital day #5 1. Osteomyelitis, Left 2nd Toe - Bedside I&D of the toe by Podiatry on 04/26/16 with abscess tracking to the bone at the DIP joint. - Culture from abscess growing MSSA - Amputation with podiatry on 04/28/16 - Antibiotic changed to ceftriaxone 2g daily given the wound culture result for 1 day. He received 3 days of therapy with Zosyn and linezolid. Discharged with a 5 day course of Augmentin. 2. Atrial Fibrillation, Paroxysmal - Remained in NSR - Continued Warfarin with pharmacy making dose adjustments - INR subtherapeutic at discharge as dosing was held in preparation for the toe amputation - Advised the patient to follow up with the INR clinic in 2-3 days 3. Diabetes Mellitus, Type II, well controlled - Provided medium dose correctional insulin during this hospitalization - Blood glucose monitoring throughout his hospitalization - Held home Glipizide 4. Essential Hypertension, Well controlled - Continued home dose of Coreg and lisinopril 5. Chronic Kidney Disease, Stage III, Stable - Avoided nephrotoxic agents 6. Crohn's Disease, Stable - Continued home dosing of Mesalamine 7. Probable gout given the presence of tophi intraoperatively - Uric acid level normal on 04/28/16 - Discharged with colchicine BID Exam Vital Signs (Last) Date Time Temp Pulse Resp B/P Pulse Ox O2 Delivery O2 Flow Rate FiO2 04/29/16 13:51 36.7 99 18 110/71 95 Room Air Test 04/24/16 22:31 04/25/16 02:15 04/25/16 05:45 04/26/16 06:00 Erythrocyte Sedimentation Rate 67mm/hr (0-30) Lactic Acid Level 0.5mmol/L (0.4-2.0) C-Reactive Protein 16.6mg/dL (0.0-0.5) Hold Burger Top Tube Received (Received) Urine Color Straw (YELLOW) Urine Appearance Clear (CLEAR,HAZY) Urine pH 6.0 (5.0-8.0) Urine Specific [place] 1.015 (1.003-1.035) Urine Protein Negativemg/dL (NEG,TRACE) Urine Glucose (UA) Negativemg/dL (NEGATIVE) Urine Ketones Negativemg/dL (NEGATIVE) Urine Occult Blood Negative (NEGATIVE) Urine Nitrite Negative (NEGATIVE) Urine Bilirubin Negative (NEGATIVE) Urine Urobilinogen Normalmg/dL (NORMAL) Urine Leukocyte Esterase Negative (NEGATIVE) Urine RBC 0-2/hpf (0-2) Urine WBC 0-5/hpf (0-5) Urine Epithelial Cells Occasional/hpf (NONE-MOD) Urine Crystals None seen (NONE SEEN) Urine Bacteria Few/hpf (NONE-FEW) Urine Hyaline Casts None/lpf (NONE) Urine Granular Casts None seen (NONE SEEN) Urine Waxy Casts None seen (NONE SEEN) Urine Red Blood Cell Casts None seen (NONE SEEN) Urine White Blood Cell Casts None seen (NONE SEEN) Urine Mucus None seen (None Seen) Urine Trichomonas None seen (NONE SEEN) Urine Yeast None (NONE SEEN) Urinalysis Comment None Urine Culture Reflexed Not indicated Hemoglobin A1c 6.5% (4.8-5.6) Triglycerides Level 149mg/dL (0-149) Cholesterol Level 117mg/dL (100-199) LDL Cholesterol, Calculated 60.200mg/dL (0-99) VLDL Cholesterol 29.800mg/dL HDL Cholesterol 27mg/dL (>39) Cholesterol/HDL Ratio 4.33 (0.0-4.4) Phosphorus Level 3.0mg/dL (2.5-4.9) Magnesium Level 1.9mg/dL (1.6-2.6) Procalcitonin 0.06ng/mL (See Comment) Test 04/27/16 07:07 04/28/16 06:00 04/29/16 06:20 Sodium Level 141mEq/L (134-144) Potassium Level 4.8mEq/L (3.5-5.2) Chloride Level 105mEq/L (97-108) Carbon Dioxide Level 21mmol/L (18-29) Blood Urea Nitrogen 19mg/dL (8-27) Creatinine 1.38mg/dL (0.76-1.27) Estimat Glomerular Filtration Rate 55mL/min (>59) Glucose Level 128mg/dL (60-99) Calcium Level 9.3mg/dL (8.5-10.1) Total Bilirubin 0.3mg/dL (0.0-1.2) Aspartate Amino Transf (AST/SGOT) 19U/L (0-50) Alanine Aminotransferase (ALT/SGPT) 15U/L (0-44) Alkaline Phosphatase 47U/L (25-160) Total Protein 6.9g/dL (6.4-8.4) Albumin 3.8g/dL (3.4-5.0) Uric Acid 6.7mg/dL (2.6-7.2) White Blood Count 9.1th/mm3 (3.8-10.1) Red Blood Count 3.91mil/mm3 (4.40-5.80) Hemoglobin 11.5g/dL (13.8-17.2) Hematocrit 35.2% (41.0-50.0) Mean Corpuscular Volume 90.0fL (81-100) Mean Corpuscular Hemoglobin 29.4pg (27.0-35.0) Mean Corpuscular Hemoglobin Concent 32.7% (32.0-37.0) Red Cell Distribution Width 13.9% (12.3-15.4) Platelet Count 171bil/L (150-400) Neutrophils (%) (Auto) 72.8% (40-74) Lymphocytes (%) (Auto) 10.9% (14-46) Monocytes (%) (Auto) 12.9% (4-12) Eosinophils (%) (Auto) 2.8% (0-5) Basophils (%) (Auto) 0.3% (0-3) Prothrombin Time 11.4sec (8.1-12.5) Prothromb Time International Ratio 1.06ratio Microbiology Results Left 2nd toe culture from 04/25/16: MSSA Discharge Medications Discharge Medications Amoxicillin/Clav K 500-125 mg (Augmentin 500-125 mg) 1 Each Tablet 1 TABLET PO BID Prescribed by: DO Alexandra TOPETE Calcium (Vitamin C) 500 Mg Tablet 500 MG PO QAM (Reported) Carvedilol (Carvedilol) 25 Mg Tablet 25 MG PO BID (Reported) Colchicine (Colchicine) 0.6 Mg Capsule 0.6 MG PO BID Prescribed by: JIGNESH MAURICIO DO Fenofibrate (Fenofibrate) 54 Mg Tablet 54 MG PO HS (Reported) Ferrous Sulfate (Ferrous Sulfate) 325 Mg Tablet.dr 325 MG PO DAILY (Reported) Fish Oil/Dha/Epa (Fish Oil 1,200 mg Fish Oil) 1 Each Capsule 2 CAPSULE PO QAM ( Reported) Furosemide (Furosemide) 40 Mg Tablet 40 MG PO DAILY (Reported) Glipizide (Glipizide) 5 Mg Tablet 5 MG PO AM (Reported) Glipizide (Glipizide) 5 Mg Tablet 10 MG PO HS (Reported) Lisinopril (Lisinopril) 5 Mg Tablet 5 MG PO DAILY (Reported) Mesalamine (Lialda) 1.2 Gm Tablet.dr 2.4 GM PO DAILY (Reported) Niacin (Niacin) 500 Mg Tablet 1,000 MG PO HS (Reported) Rosuvastatin Calcium (Rosuvastatin Calcium) 40 Mg Tablet 40 MG PO HS (Reported) Spironolactone (Spironolactone) 25 Mg Tablet 12.5 MG PO DAILY (Reported) Warfarin Sodium (Jantoven) 5 Mg Tablet 5 MG PO DAILY (Reported) take 5 mg daily except tuesdays. Warfarin Sodium (Jantoven) 7.5 Mg Tablet 7.5 MG PO tuesdays (Reported) Followup Plan Disposition: Home with podiatry follow up in 6 days. Follow-up plan It is important that you keep your follow up appointment with Dr Garcia for evaluation of your feet and amputation wound. Discharge Diet: Diabetic Discharge Activity: Other (Balance rest with activity, wear the post op shoe Dr Garcia has given you.) Patient Instructions You will resume your home medications with the addition of antibiotics and a medication for management of gout. Take 1 tablet of Augmentin by mouth twice daily for 5 days. Take 1 tablet of colchicine by mouth twice daily. Please follow up with the INR (protime) clinic in 2-3 days as your warfarin dose may need to be adjusted. Follow up with Dr Garcia (podiatry) on May 05; please call his office to determine an appointment time. Follow-up Provider: Jose, Dean C DPM Follow-up with PCP in: 1 week (Thursday , 05/05/16) Provider: Jered Bright MD Follow-up in: 2 weeks (Please call to schedule this appointment) Time spent 35 minutes Attending Statement The patient was seen and examined together with Dr. Mauricio on 04/29/2016 and I agree with the history, exam and plan as outlined in the note above. copies to: Jered Bright MD, Rachel M DO Apr 29, 2016 19:45 Kodi Lombardi MD Apr 30, 2016 10:51
--- NOTE | 2016-05-01 14:51 | PATH ---
SURGICAL PATHOLOGY Attending Physician:Dean Garcia DPM CASE STATUS: Signed Out PATIENT NAME: EVAN MADDEN PID: [id number] : 1955 DATE COLLECTED:04/28/2016 20:41 SPECIMEN: Extremity Amputation, Non-Traumatic CLINICAL HISTORY: NECROTIC 2ND TOE LEFT FOOT 1). LEFT FOOT 2ND TOE FINAL DIAGNOSIS: 1.AMPUTED SECOND TOE, LEFT FOOT: EXTENSIVE SOFT TISSUE AND SKIN ULCERATION WITH NECROSIS. INFLAMMATION EXTENDING TO UNDERLYING BONE WITH SECONDARY ACUTE OSTEOMYELITIS. RESECTION MARGIN APPEARS VIABLE. ICD10 CODE I96 GROSS DESCRIPTION: The specimen is received in formalin, labeled with the patient's name, sublabeled as left foot 2nd toe and consists of a disarticulated toe (6.3 cm in AP, 2.5 cm SI, 2.5 cm ML). The toenail is absent. The superior aspect is received sliced exposing nance-yellow soft tissue. The central anterior aspect contains a xie-yellow crusted over ulcer (0.6 x 0.4 cm) surrounded by xie-yellow firm skin. A second ulcer (0.6 x 0.5 cm) is located on the anteromedial aspect, 1.8 cm from ulcer #1, and 1.2 cm from the superior resection margin. The remaining skin is lopez-white and flaky. The underlying bone is hard and cannot be sliced with a scalpel. The bone cut surface is xie and remarkable. Ink code: black-superior; orange-inferior. Section code: (A) skin and soft tissue resection margin; (B) bone articular surface; (C) ulcers, senior sales representative; (D) bone underlying ulcers, serially sectioned, senior sales representative. Note: The bone sections have been decalcified. 04/29/16 JM MICRO DESCRIPTION: See diagnosis. ICD-9 CODES: CPT CODES: 1: 96159 Electronically Signed Out Gama Staples MD [facility] [address], [place] [address] Technical component performed at [facility], [facility] [address], [address]
== END 2016-04-29 14:27 | disposition home or self-care (01) | DRG 580 ==
LOC: MPC 19:18
PROVIDERS: ADMIT Internal Medicine; ATTEND Internal Medicine
PROC: 0Y6S0Z2 Detachment at Left 2nd Toe, Mid, Open Approach (ICD-10-PCS; principal; 2016-04-28 12:00)
DX: L97.523 Non-pressure chronic ulcer of other part of left foot with necrosis of muscle (principal); K50.90 Crohn's disease, unspecified, without complications; M86.9 Osteomyelitis, unspecified; I48.0 Paroxysmal atrial fibrillation; E11.621 Type 2 diabetes mellitus with foot ulcer; E11.22 Type 2 diabetes mellitus with diabetic chronic kidney disease; E11.29 Type 2 diabetes mellitus with other diabetic kidney complication; I12.9 Hypertensive chronic kidney disease with stage 1 through stage 4 chronic kidney disease, or unspecified chronic kidney disease; N18.3 Chronic kidney disease, stage 3 (moderate); M10.9 Gout, unspecified; B95.61 Methicillin susceptible Staphylococcus aureus infection as the cause of diseases classified elsewhere; E78.5 Hyperlipidemia, unspecified; R79.1 Abnormal coagulation profile; Z79.01 Long term (current) use of anticoagulants